=== PATIENT | female | born 1945 | race Two or more races ===

== ENCOUNTER → 2016-02-17 | Outpatient (REF) | payer MEDICAID, OTHER ==
[~2016-02-17] MED LIST: AMLO10TA2 PO; CARV25TA PO; CEFD1CAP8 PO; CHLO125TA PO; HYDR10T PO; LOSA100T36 PO; METF1000 PO; PANT40TA2 PO; SIMV20TA2 PO; SYNT50TA PO; VITA100037 PO
[2016-02-17 13:12] LABS: CALCIUM LEVEL 9.6 MG/DL (8.8-10.2); CREATININE FOR GFR 1.66 MG/DL (0.55-1.02); GLOMERULAR FILTRATION RATE 32.7 (>45)
[2016-02-17 13:31] LABS: POTASSIUM SERUM 5.4 MEQ/L (3.5-5.1)
== END ==
LOC: M LABDRAW1 12:06
PROVIDERS: ATTEND Internal Medicine
DX: N17.9 Acute kidney failure, unspecified (principal)

== ENCOUNTER 2016-03-13 14:27 | Emergency (ER) | payer OTHER ==
[2016-03-13 15:17] LABS: BASO # 0.1 K/mm3 (0.0-0.2); BASO % 0.6 % (0.0-1.0); EOS # 0.1 K/mm3 (0.0-0.50); EOS % 1.2 % (0.0-3.0); LARGE UNSTAINED CELL # 0.1 K/mm3 (0.0-0.4); LARGE UNSTAINED CELL % 0.9 % (0.0-4.0); LYMPH # 1.6 K/mm3 (1.5-4.5); LYMPH % 13.2 % (24.0-44.0); MEAN CORPUSCULAR HEMOGLOBIN 29.3 pg (27.0-33.0); MEAN CORPUSCULAR HGB CONC 32.5 g/dl (32.0-36.5); MEAN CORPUSCULAR VOLUME 90.2 fl (80.0-96.0); MONO # 0.8 K/mm3 (0.0-0.8); MONO % 7.3 % (0.0-5.0); NEUTROPHILS # 8.6 K/mm3 (1.8-7.7); NEUTROPHILS % 76.8 % (36.0-66.0); PLATELET COUNT, AUTOMATED 266 k/mm3 (150-450); WHITE BLOOD COUNT 11.2 K/mm3 (4.0-10.0)
[2016-03-13 15:46] LABS: ALBUMIN 3.6 GM/DL (3.2-5.2); ALBUMIN/GLOBULIN RATIO 0.8 (1.00-1.93); BILIRUBIN,DIRECT 0.1 MG/DL (0.0-0.2); BILIRUBIN,TOTAL 0.5 MG/DL (0.2-1.0); CALCIUM LEVEL 9.2 MG/DL (8.8-10.2); CREATININE FOR GFR 1.84 MG/DL (0.55-1.02); POTASSIUM SERUM 3.9 MEQ/L (3.5-5.1); TOTAL PROTEIN 8.1 GM/DL (6.4-8.2)
[2016-03-13] MEDS ORDERED: cefTRIAXone SOD 1 GM VIAL (J0696) As Ordered ONE (17:12)
--- NOTE | 2016-03-13 18:24 | EDDOCDS ---
Nurse's Notes [facility] Name: Ady Anna Age: 70 yrs Sex: Female : 1945 Arrival Date: 03/13/2016 Time: 14:27 Bed I4 / M4 Private MD: Virginia Hartley Diagnosis: Chronic kidney disease, unspecified;Urinary tract infection, site not specified Presentation: 03/13 14:32 Presenting complaint: Child states: Left flank area pain worsening for 3 days. dwg Presenting complaint: Patient states: Admitted 02/08/16 for pyelonephritis. Adult Sepsis Screening: The patient does not have new or worsening altered mentation. Patient's respiratory rate is less than 22. Systolic blood pressure is greater than 100. Patient has a qSOFA score of 0- Negative Sepsis Screen. Suicide/Homicide risk assessment- the patient denies having any suicidal and/or homicidal ideations and does not present with any other emotional, behavioral or mental health complaints. Status: Patient is not a food service ambassador or dependent. Transition of care: patient was not received from another setting of care. 14:32 Acuity: SALINAS Level 3 dwg 14:32 Method Of Arrival: Walkin/Carried/Asstd dwg Triage Assessment: 14:35 General: Appears in no apparent distress. Pain: Pain currently is 6 out of 10 on a pain dwg scale. Historical: - Allergies: no known allergies; - Home Meds: 1. Tylenol 325 mg Oral tab 2 tabs as needed (Last dose: 03/13/2016 13:30) 2. amlodipine 10 mg Oral tab 1 tab once daily 3. carvedilol 25 mg oral tab 1 tab 2 times per day 4. chlorthalidone 25 mg Oral tab 0.5 tab once daily 5. hydroxyzine HCl 10 mg Oral tab three times a day 6. levothyroxine 50 mcg Oral tab 1 tab once daily 7. losartan-potassium 100 mg nightly 8. metformin 1,000 mg Oral tab 1 tab 2 times per day 9. pantoprazole 40 mg oral TbEC 1 tab 2 times per day 10. simvastatin 20 mg Oral tab 1 tab once daily 11. vitamin d3 2000 units daily - PMHx: Diabetes - NIDDM: controlled; Hypercholesterolemia; Hypertension; Hypothyroidism; Vitamin D deficient; - PSHx: Cataract Surgery- Bilateral; - Social history: Smoking status: Patient states was never smoker of tobacco. The patient speaks a little Hebrew, Daughter here to interpret . - Family history: Not pertinent. - : The pt / caregiver states he / she is not on anticoagulants. Home medication list is obtained from the patient. - Exposure Risk Screening:: None identified. - History obtained from: daughter. Screenin:10 Screening information is obtained from the patient. Fall risk: No risks identified. ttb Assistance ADL's: requires no assistance with activities of daily living. Abuse/DV Screen: The patient / caregiver reports he/she is: not in a situation that causes fear, pain or injury. Nutritional screening: No deficits noted. Advance Directives: Currently, there is no health care proxy. home support is adequate. Assessment: 15:10 General: Appears in no apparent distress, well nourished, well groomed, Behavior is ttb appropriate for age, cooperative, pleasant, quiet. Pain: Location: left flank/back. Neurological: Level of Consciousness is awake, alert. Cardiovascular: Chest pain is denied. Respiratory: No deficits noted. Airway is patent Denies cough, shortness of breath. GI: Abdomen is flat, Abd is soft. : Denies burning with urination, urinary frequency, urgency. Derm: Skin is normal. Injury Description: No known injury. 16:30 General: pt returned from CT at this time. NAD noted.. ttb 17:55 Reassessment: Patient appears in no apparent distress at this time. Adult Sepsis ttb Screening: The patient does not have new or worsening altered mentation. Patient's respiratory rate is less than 22. Systolic blood pressure is less than or equal to 100 (1 point). Patient has a qSOFA score of 1- Negative Sepsis Screen. Neurological: Level of Consciousness is awake, alert. Respiratory: No deficits noted. Airway is patent. Derm: Skin is normal. 18:22 General: Appears in no apparent distress, comfortable, Behavior is appropriate for age, ttb cooperative, pleasant, quiet. Pain: Denies pain. Neurological: Level of Consciousness is awake, alert. Cardiovascular: Chest pain is denied. Respiratory: No deficits noted. Airway is patent Respiratory effort is even, unlabored. GI: Denies nausea, vomiting. Vital Signs: 14:28 BP 108 / 60; Pulse 77; Resp 18 S; Temp 99.1(O); Pulse Ox 97% on R/A; Weight 54.43 kg dd6 (R); Height 4 ft. 11 in. (149.86 cm) (R); 17:56 BP 98 / 64; Pulse 82; Resp 22; Temp 98.7(O); Pulse Ox 97% on R/A; Pain 0/10; bnb 18:18 Resp 18; ms18 14:28 Body Mass Index 24.24 (54.43 kg, 149.86 cm) dd6 Vitals: 14:28 Log In Time: March 13, 2016 at 14:26. dd6 ED Course: 14:28 Patient visited by Tex Roa PCA. dd6 14:28 Virginia Hartley is Private Physician. dd6 14:28 Patient moved to Waiting dd6 14:29 Patient moved to Pre RCE dd6 14:33 Triage Initiated dwg 14:42 Patient moved to Triage 2 ct3 14:46 Urine Culture Sent. ct3 14:46 Urinalysis Sent. ct3 14:47 Brando Gauthier PA-C is PHCP. cc10 14:47 Seda Zhao MD is Attending Physician. cc10 14:52 Patient visited by Brando Gauthier PA-C. cc10 14:52 Patient visited by Brando Gauthier PA-C. cc10 14:58 Patient moved to I4 / M4 jmb 15:09 Lactic Acid (Batista tube on ice) Sent. ttb 15:09 Basic Metabolic Profile Sent. ttb 15:09 CBC with Diff Sent. ttb 15:09 Lipase Sent. ttb 15:09 Liver Profile Sent. ttb 15:09 Inserted peripheral IV: 20gauge IV in right antecubital area and blood collected. ttb Patient tolerated the procedure well. Labs drawn. (by ED staff). Urine collected. Clean catch specimen. 15:10 The patient / caregiver is instructed regarding the plan of care and ED course. ttb Accompanied by Family Member, Patient has correct armband on for positive identification. 15:12 Patient visited by Karlee Weldon RN. ttb 15:12 [facility] Payment Agreement was scanned into [employer] and attached to record. lg 16:05 PHCP role handed off by Brando Gauthier PA-C btw 16:05 Paras Oliva PA is PHCP. btw 16:30 Patient visited by Karlee Weldon, JUVENTINO. ttb 17:34 Patient visited by Jaron Livingston. jml1 17:56 Patient visited by Amy Shelton PCA. bnb 17:56 Patient visited by Karlee Weldon RN. ttb 18:11 Sharon Hernandez is Referral Physician. btw 18:22 Discontinued IV lock intact, bleeding controlled, pressure dressing applied, No ttb redness/swelling at site. 18:22 No procedures done that require assistance. ttb Administered Medications: 15:00 CANCELLED (Other Intervention Used): Acetaminophen Tablet 650 mg PO once cc10 15:09 Drug: NS 0.9% 1000 ml [sodium chloride 0.9 % intravenous solution] Route: IV; Rate: 250 ttb mL/hr; Site: right antecubital; 18:23 Follow up: Response: No Adverse Reaction; IV Status: Completed infusion; IV Intake: ttb 750ml 17:20 Drug: cefTRIAXone 2 grams [ceftriaxone 1 gram solution for injection] Route: IVPB; jjr Infused Over: 30 mins; Site: right antecubital; 17:55 Follow up: Response: No Adverse Reaction; IV Status: Completed infusion ttb Intake: 18:23 IV: 750.00ml; Total: 750.00ml. ttb Order Results: Lab Order: Urinalysis; SPEC'M 03/13/16 14:44 Test: APPEARANCE, URINE; Value: CLOUDY; Range: CLEAR; Abnormal: Above high normal; Status: F Test: COLOR, URINE; Value: YELLOW; Range: YELLOW; Status: F Test: PH,URINE; Value: 7.0; Range: 5.0-9.0; Units: UNITS; Status: F Test: SPECIFIC GRAVITY URINE AUTO; Value: 1.012; Range: 1.002-1.035; Status: F Test: PROTEIN, URINE AUTO; Value: NEGATIVE; Range: NEGATIVE; Units: mg/dL; Status: F Test: GLUCOSE, URINE (UA) AUTO; Value: NEGATIVE; Range: NEGATIVE; Units: mg/dL; Status: F Test: KETONE, URINE AUTO; Value: NEGATIVE; Range: NEGATIVE; Units: mg/dL; Status: F Test: UROBILINOGEN, URINE AUTO; Value: 0.2; Range: 0.0-2.0; Units: mg/dL; Status: F Test: BILIRUBIN, URINE AUTO; Value: NEGATIVE; Range: NEGATIVE; Status: F Test: NITRITE, URINE AUTO; Value: NEGATIVE; Range: NEGATIVE; Status: F Test: LEUKOCYTE ESTERASE, URINE AUTO; Value: 3+; Range: NEGATIVE; Abnormal: Above high normal; Status: F Test: BLOOD, URINE BLOOD; Value: NEGATIVE; Range: NEGATIVE; Status: F Test: WBC, URINE AUTO; Value: 161; Range: 0-3; Abnormal: Above high normal; Units: /HPF; Status: F Test: RBC, URINE AUTO; Value: 13; Range: 0-3; Abnormal: Above high normal; Units: /HPF; Status: F Test: BACTERIA, URINE AUTO; Value: 3+; Range: NEGATIVE; Abnormal: Above high normal; Status: F Test: SQUAMOUS EPITHELIAL CELL UR AU; Value: 14; Range: 0-6; Units: /HPF; Status: F Test: HYALINE CAST, URINE AUTO; Value: 0; Range: 0-1; Units: /LPF; Status: F Lab Order: Basic Metabolic Profile; SPEC'M 03/13/16 15:07 Test: GLUCOSE, FASTING; Value: 174; Range: 80-110; Abnormal: Above high normal; Units: MG/DL; Status: F Test: BLOOD UREA NITROGEN; Value: 28; Range: 7-18; Abnormal: Above high normal; Units: MG/DL; Status: F Test: CREATININE FOR GFR; Value: 1.84; Range: 0.55-1.02; Abnormal: Above high normal; Units: MG/DL; Status: F Test: GLOMERULAR FILTRATION RATE; Value: 29.0; Range: >45; Abnormal: Below low normal; Status: F Test: SODIUM LEVEL; Value: 138; Range: 136-145; Units: MEQ/L; Status: F Test: POTASSIUM SERUM; Value: 3.9; Range: 3.5-5.1; Units: MEQ/L; Status: F Test: CHLORIDE LEVEL; Value: 101; Range: 98-107; Units: MEQ/L; Status: F Test: CARBON DIOXIDE LEVEL; Value: 26; Range: 21-32; Units: MEQ/L; Status: F Test: ANION GAP; Value: 11; Range: 8-16; Units: MEQ/L; Status: F Test: CALCIUM LEVEL; Value: 9.2; Range: 8.8-10.2; Units: MG/DL; Status: F Test Note: ; Units are mL/min/1.73 m2 Chronic Kidney Disease Staging per NKF: Stage I & II GFR >=60 Normal to Mildly Decreased Stage III GFR 30-59 Moderately Decreased Stage IV GFR 15-29 Severely Decreased Stage V GFR <15 Very Little GFR Left ESRD GFR <15 on MILK RECEIVER Lab Order: CBC with Diff; SPEC'M 03/13/16 15:07 Test: WHITE BLOOD COUNT; Value: 11.2; Range: 4.0-10.0; Abnormal: Above high normal; Units: K/mm3; Status: F Test: RED BLOOD COUNT; Value: 3.62; Range: 4.00-5.40; Abnormal: Below low normal; Units: M/mm3; Status: F Test: HEMOGLOBIN; Value: 10.6; Range: 12.0-16.0; Abnormal: Below low normal; Units: g/dl; Status: F Test: HEMATOCRIT; Value: 32.6; Range: 36.0-47.0; Abnormal: Below low normal; Units: %; Status: F Test: MEAN CORPUSCULAR VOLUME; Value: 90.2; Range: 80.0-96.0; Units: fl; Status: F Test: MEAN CORPUSCULAR HEMOGLOBIN; Value: 29.3; Range: 27.0-33.0; Units: pg; Status: F Test: MEAN CORPUSCULAR HGB CONC; Value: 32.5; Range: 32.0-36.5; Units: g/dl; Status: F Test: RED CELL DISTRIBUTION WIDTH; Value: 14.0; Range: 11.5-14.5; Units: %; Status: F Test: PLATELET COUNT, AUTOMATED; Value: 266; Range: 150-450; Units: k/mm3; Status: F Test: NEUTROPHILS %; Value: 76.8; Range: 36.0-66.0; Abnormal: Above high normal; Units: %; Status: F Test: LYMPH %; Value: 13.2; Range: 24.0-44.0; Abnormal: Below low normal; Units: %; Status: F Test: MONO %; Value: 7.3; Range: 0.0-5.0; Abnormal: Above high normal; Units: %; Status: F Test: EOS %; Value: 1.2; Range: 0.0-3.0; Units: %; Status: F Test: BASO %; Value: 0.6; Range: 0.0-1.0; Units: %; Status: F Test: LARGE UNSTAINED CELL %; Value: 0.9; Range: 0.0-4.0; Units: %; Status: F Test: NEUTROPHILS #; Value: 8.6; Range: 1.8-7.7; Abnormal: Above high normal; Units: K/mm3; Status: F Test: LYMPH #; Value: 1.6; Range: 1.5-4.5; Units: K/mm3; Status: F Test: MONO #; Value: 0.8; Range: 0.0-0.8; Units: K/mm3; Status: F Test: EOS #; Value: 0.1; Range: 0.0-0.50; Units: K/mm3; Status: F Test: BASO #; Value: 0.1; Range: 0.0-0.2; Units: K/mm3; Status: F Test: LARGE UNSTAINED CELL #; Value: 0.1; Range: 0.0-0.4; Units: K/mm3; Status: F Lab Order: Lipase; [facility]' 03/13/16 15:07 Test: LIPASE; Value: 186; Range: 73-393; Units: U/L; Status: F Lab Order: Liver Profile; [facility]' 03/13/16 15:07 Test: AST/SGOT; Value: 17; Range: 15-37; Units: U/L; Status: F Test: ALT/SGPT; Value: 22; Range: 12-78; Units: U/L; Status: F Test: ALKALINE PHOSPHATASE; Value: 104; Range: 45-117; Units: U/L; Status: F Test: BILIRUBIN,TOTAL; Value: 0.5; Range: 0.2-1.0; Units: MG/DL; Status: F Test: BILIRUBIN,DIRECT; Value: 0.1; Range: 0.0-0.2; Units: MG/DL; Status: F Test: TOTAL PROTEIN; Value: 8.1; Range: 6.4-8.2; Units: GM/DL; Status: F Test: ALBUMIN; Value: 3.6; Range: 3.2-5.2; Units: GM/DL; Status: F Test: ALBUMIN/GLOBULIN RATIO; Value: 0.80; Range: 1.00-1.93; Abnormal: Below low normal; Status: F Lab Order: Lactic Acid (Batista tube on ice); SPEC'M 03/13/16 15:07 Test: LACTIC ACID LEVEL, LACTATE; Value: 1.0; Range: 0.4-2.0; Units: MMOL/L; Status: F Outcome: 18:11 Discharge ordered by Provider. btw 18:22 Discharge Assessment: Patient awake, alert and oriented x 3. No cognitive and/or ttb functional deficits noted. Patient verbalized understanding of disposition instructions. Patient awake and alert. patient administered narcotics - no. The following High Risk Discharge criteria are identified: None. Discharged to home ambulatory, with family. Condition: good Condition: stable Condition: improved. Discharge instructions given to patient, family, Instructed on discharge instructions, follow up and referral plans. medication usage, Demonstrated understanding of instructions, medications, Pt was receptive of discharge instructions/ teaching. Prescriptions given X 1. CT Study completed. Property sent home with patient. 18:23 Patient left the ED. ttb Signatures: Ernie Guerrero RN RN dwg Becca Benson, Reg Reg lg Dawn Carlson RN Tex Zuñiga, TEACHER HOME THERAPY TEACHER HOME THERAPY dd6 Paras Oliva PA PA btw Humaira Hinojosa, TEACHER HOME THERAPY TEACHER HOME THERAPY ct3 Jaron Livingston jml1 Karlee Weldon RN RN ttb Christian Shelton RN RN jensenb Brando Gauthier, PA-C PA-C cc10 Tammy Olson RN RN [id number] Amy Shelton, TEACHER HOME THERAPY TEACHER HOME THERAPY bnb Corrections: (The following items were deleted from the chart) 14:37 14:35 Social history Smoking status: Patient states was never smoker of tobacco. No dwg barriers to communication noted, The patient speaks fluent Hebrew, dwg MTDD
--- NOTE | 2016-03-13 18:24 | EDDOCDS ---
Physician Documentation [facility] Name: Ady Anna Age: 70 yrs Sex: Female : 1945 Arrival Date: 03/13/2016 Time: 14:27 Bed I4 / M4 Private MD: Virginia Hartley Disposition: 03/13/16 18:11 Discharged to Home/Self Care. Impression: Chronic kidney disease, unspecified, Urinary tract infection, site not specified. - Condition is Stable. - Discharge Instructions: Urinary Tract Infection, [id number], Chronic Kidney Disease. - Prescriptions for Keflex 500 mg Oral Capsule - take 1 capsule by ORAL route every 8 hours for 10 days; 30 capsule. - Medication Reconciliation, Local Pharmacy Hours form. - Follow up: Sharon Hernandez; When: Call to arrange an appointment; Reason: Further diagnostic work-up, Recheck today's complaints, Continuance of care. - Problem is an ongoing problem. - Symptoms are unchanged. Historical: - Allergies: no known allergies; - Home Meds: 1. Tylenol 325 mg Oral tab 2 tabs as needed (Last dose: 03/13/2016 13:30) 2. amlodipine 10 mg Oral tab 1 tab once daily 3. carvedilol 25 mg oral tab 1 tab 2 times per day 4. chlorthalidone 25 mg Oral tab 0.5 tab once daily 5. hydroxyzine HCl 10 mg Oral tab three times a day 6. levothyroxine 50 mcg Oral tab 1 tab once daily 7. losartan-potassium 100 mg nightly 8. metformin 1,000 mg Oral tab 1 tab 2 times per day 9. pantoprazole 40 mg oral TbEC 1 tab 2 times per day 10. simvastatin 20 mg Oral tab 1 tab once daily 11. vitamin d3 2000 units daily - PMHx: Diabetes - NIDDM: controlled; Hypercholesterolemia; Hypertension; Hypothyroidism; Vitamin D deficient; - PSHx: Cataract Surgery- Bilateral; - Social history: Smoking status: Patient states was never smoker of tobacco. The patient speaks a little Bulgarian, Daughter here to interpret . - Family history: Not pertinent. - : The pt / caregiver states he / she is not on anticoagulants. Home medication list is obtained from the patient. - Exposure Risk Screening:: None identified. - History obtained from: daughter. Vital Signs: 03/13 14:28 BP 108 / 60; Pulse 77; Resp 18 S; Temp 99.1(O); Pulse Ox 97% on R/A; Weight 54.43 kg / dd6 120 lbs (R); Height 4 ft. 11 in. (149.86 cm) (R); 17:56 BP 98 / 64; Pulse 82; Resp 22; Temp 98.7(O); Pulse Ox 97% on R/A; Pain 0/10; bnb 18:18 Resp 18; ms18 14:28 Body Mass Index 24.24 (54.43 kg, 149.86 cm) dd6 MDM: 14:38 Urinalysis Ordered. EDMS 14:38 Urine Culture Ordered. EDMS 14:56 IV Saline Lock ordered. cc10 14:56 Undress patient appropriately for examination ordered. cc10 14:56 NS 0.9% 1000 ml IV at 250 mL/hr continuous ordered. cc10 14:57 Basic Metabolic Profile Ordered. EDMS 14:57 CBC with Diff Ordered. EDMS 14:57 Lipase Ordered. EDMS 14:57 Liver Profile Ordered. EDMS 14:57 NOTHING BY MOUTH+DIET ordered. EDMS 14:58 Lactic Acid (Batista tube on ice) Ordered. EDMS 15:12 Financial registration complete. lg 15:12 [facility] Payment Agreement was scanned into [employer] and attached to record. lg 15:49 Urinalysis Reviewed. cc10 15:49 Basic Metabolic Profile Reviewed. cc10 15:49 CBC with Diff Reviewed. cc10 15:49 Liver Profile Reviewed. cc10 15:49 Lipase Reviewed. cc10 15:49 Lactic Acid (Batista tube on ice) Reviewed. cc10 15:59 CT ABD & PELVIS: No Contrast Ordered. EDMS 17:03 cefTRIAXone 2 grams IVPB once over 30 mins; dilute in 50mL of NS or D5W ordered. btw Administered Medications: 15:00 CANCELLED (Other Intervention Used): Acetaminophen Tablet 650 mg PO once cc10 15:09 Drug: NS 0.9% 1000 ml [sodium chloride 0.9 % intravenous solution] Route: IV; Rate: 250 ttb mL/hr; Site: right antecubital; 18:23 Follow up: Response: No Adverse Reaction; IV Status: Completed infusion; IV Intake: ttb 750ml 17:20 Drug: cefTRIAXone 2 grams [ceftriaxone 1 gram solution for injection] Route: IVPB; jjr Infused Over: 30 mins; Site: right antecubital; 17:55 Follow up: Response: No Adverse Reaction; IV Status: Completed infusion ttb Signatures: Dispatcher [employer] Ernie Benton, RN RN dwg Becca Benson, Reg Reg lg Paras Oliva PA PA btw Conner, Teresa, RN RN ttb Brando Gauthier PA-C PA-C cc10 Dawn Carlson RN jjlima The chart was reviewed and I authenticate all verbal orders and agree with the evaluation and treatment provided.Corrections: (The following items were deleted from the chart) 14:37 14:35 Social history Smoking status: Patient states was never smoker of tobacco. No [facility] barriers to communication noted, The patient speaks fluent Bulgarian, [facility] 15:00 14:59 Acetaminophen Tablet 650 mg PO once ordered. cc10 cc10 Attachments: 15:12 [facility] Payment Agreement lg MTDD
--- NOTE | 2016-03-15 11:05 | REP ---
CT abdomen pelvis without IV or bowel contrast: Comparisons 02/08/2016. There is a nonobstructive 3 mm right renal calculus in an upper pole blanca, unchanged. There are no left renal calculi. There is no hydronephrosis on the right on the left. No ureteral calculi are identified. There are phleboliths in the pelvis, unchanged. There is fullness of the left renal cortex, particularly the upper pole compared to the right. There is perinephric stranding of the left kidney compared to the right. These findings are similar to the prior study and a nonspecific, however, pyelonephritis or neoplasm or some diagnostic considerations. Contrast enhanced CT or MRI followup might be considered. The visualized lung cruz are unremarkable. The unenhanced hepatic parenchyma, gallbladder, pancreas and spleen are unremarkable. The adrenals, abdominal aorta, and bowel are unremarkable except for occasional colonic diverticuli in the ascending colon, transverse colon, descending colon and sigmoid colon without evidence of diverticulitis. Pelvis: The the appendix is unremarkable. There is no ascites or adenopathy. The uterus and adnexa are unremarkable. The bladder is collapsed and cannot be assessed. Impression: No hydronephrosis. There are findings in the left kidney as described which could represent neoplasm or pyelonephritis and are similar appearance to the prior study. Contrast enhanced CT or MRI followup might be considered. Diverticulosis without diverticulitis. Signed by Ernie Castro MD 03/13/2016 04:53 P
--- NOTE | 2016-03-15 19:24 | EDDOCDS ---
Physician Documentation [facility] Name: Ady Anna Age: 70 yrs Sex: Female : 1945 Arrival Date: 03/13/2016 Time: 14:27 Bed I4 / M4 Private MD: Virginia Hartley Disposition: 03/13/16 18:11 Discharged to Home/Self Care. Impression: Chronic kidney disease, unspecified, Urinary tract infection, site not specified. - Condition is Stable. - Discharge Instructions: Urinary Tract Infection, [id number], Chronic Kidney Disease. - Prescriptions for Keflex 500 mg Oral Capsule - take 1 capsule by ORAL route every 8 hours for 10 days; 30 capsule. - Medication Reconciliation, Local Pharmacy Hours form. - Follow up: Sharon Diaz; When: Call to arrange an appointment; Reason: Further diagnostic work-up, Recheck today's complaints, Continuance of care. - Problem is an ongoing problem. - Symptoms are unchanged. Historical: - Allergies: no known allergies; - Home Meds: 1. Tylenol 325 mg Oral tab 2 tabs as needed (Last dose: 03/13/2016 13:30) 2. amlodipine 10 mg Oral tab 1 tab once daily 3. carvedilol 25 mg oral tab 1 tab 2 times per day 4. chlorthalidone 25 mg Oral tab 0.5 tab once daily 5. hydroxyzine HCl 10 mg Oral tab three times a day 6. levothyroxine 50 mcg Oral tab 1 tab once daily 7. losartan-potassium 100 mg nightly 8. metformin 1,000 mg Oral tab 1 tab 2 times per day 9. pantoprazole 40 mg oral TbEC 1 tab 2 times per day 10. simvastatin 20 mg Oral tab 1 tab once daily 11. vitamin d3 2000 units daily - PMHx: Diabetes - NIDDM: controlled; Hypercholesterolemia; Hypertension; Hypothyroidism; Vitamin D deficient; - PSHx: Cataract Surgery- Bilateral; - Social history: Smoking status: Patient states was never smoker of tobacco. The patient speaks a little Chilean, Daughter here to interpret . - Family history: Not pertinent. - : The pt / caregiver states he / she is not on anticoagulants. Home medication list is obtained from the patient. - Exposure Risk Screening:: None identified. - History obtained from: daughter. Vital Signs: 03/13 14:28 BP 108 / 60; Pulse 77; Resp 18 S; Temp 99.1(O); Pulse Ox 97% on R/A; Weight 54.43 kg / dd6 120 lbs (R); Height 4 ft. 11 in. (149.86 cm) (R); 17:56 BP 98 / 64; Pulse 82; Resp 22; Temp 98.7(O); Pulse Ox 97% on R/A; Pain 0/10; bnb 18:18 Resp 18; ms18 14:28 Body Mass Index 24.24 (54.43 kg, 149.86 cm) dd6 MDM: 14:38 Urinalysis Ordered. EDMS 14:38 Urine Culture Ordered. EDMS 14:56 IV Saline Lock ordered. cc10 14:56 Undress patient appropriately for examination ordered. cc10 14:56 NS 0.9% 1000 ml IV at 250 mL/hr continuous ordered. cc10 14:57 Basic Metabolic Profile Ordered. EDMS 14:57 CBC with Diff Ordered. EDMS 14:57 Lipase Ordered. EDMS 14:57 Liver Profile Ordered. EDMS 14:57 NOTHING BY MOUTH+DIET ordered. EDMS 14:58 Lactic Acid (Batista tube on ice) Ordered. EDMS 15:12 Financial registration complete. lg 15:12 [facility] Payment Agreement was scanned into [email or web address] and attached to record. lg 15:49 Urinalysis Reviewed. cc10 15:49 Basic Metabolic Profile Reviewed. cc10 15:49 CBC with Diff Reviewed. cc10 15:49 Liver Profile Reviewed. cc10 15:49 Lipase Reviewed. cc10 15:49 Lactic Acid (Batista tube on ice) Reviewed. cc10 15:59 CT ABD & PELVIS: No Contrast Ordered. EDMS 17:03 cefTRIAXone 2 grams IVPB once over 30 mins; dilute in 50mL of NS or D5W ordered. btw 03/14 18:35 T-Sheet-- Draft Copy was scanned into [email or web address] and attached to record. kf3 03/15 13:21 ED course: dr diaz and luis armando faxed formal report of ct abd/p for fu mlg. ml 15:29 Lab / Xray Callback was scanned into [email or web address] and attached to record. srm Administered Medications: 03/13 15:00 CANCELLED (Other Intervention Used): Acetaminophen Tablet 650 mg PO once cc10 15:09 Drug: NS 0.9% 1000 ml [sodium chloride 0.9 % intravenous solution] Route: IV; Rate: 250 ttb mL/hr; Site: right antecubital; 18:23 Follow up: Response: No Adverse Reaction; IV Status: Completed infusion; IV Intake: ttb 750ml 17:20 Drug: cefTRIAXone 2 grams [ceftriaxone 1 gram solution for injection] Route: IVPB; jjr Infused Over: 30 mins; Site: right antecubital; 17:55 Follow up: Response: No Adverse Reaction; IV Status: Completed infusion ttb Signatures: Dispatcher [employer] EDKS Jimmy Hurley MD MD ml Greene, Daniel RN RN dwg Edna Ewing RN RN [facility] Becca Benson, Reg Reg lg Mitch Field, Reg Reg kf3 Paras Oliva PA PA btw Conner, Teresa, RN RN ttb Brando Gauthier PA-C PA-C cc10 Raymond, Jessica RN jjr The chart was reviewed and I authenticate all verbal orders and agree with the evaluation and treatment provided.Corrections: (The following items were deleted from the chart) 14:37 14:35 Social history Smoking status: Patient states was never smoker of tobacco. No [facility] barriers to communication noted, The patient speaks fluent [place]an, [facility] 15:00 14:59 Acetaminophen Tablet 650 mg PO once ordered. cc10 cc10 Attachments: 15:12 [facility] Payment Agreement lg 03/14 18:35 T-Sheet-- Draft Copy kf3 Chart Complete MTDD
--- NOTE | 2016-03-15 19:24 | EDDOCDS ---
Physician Documentation [facility] Name: Ady Anna Age: 70 yrs Sex: Female : 1945 Arrival Date: 03/13/2016 Time: 14:27 Bed I4 / M4 Private MD: Virginia Hartley Disposition: 03/13/16 18:11 Discharged to Home/Self Care. Impression: Chronic kidney disease, unspecified, Urinary tract infection, site not specified. - Condition is Stable. - Discharge Instructions: Urinary Tract Infection, [id number], Chronic Kidney Disease. - Prescriptions for Keflex 500 mg Oral Capsule - take 1 capsule by ORAL route every 8 hours for 10 days; 30 capsule. - Medication Reconciliation, Local Pharmacy Hours form. - Follow up: Sharon Diaz; When: Call to arrange an appointment; Reason: Further diagnostic work-up, Recheck today's complaints, Continuance of care. - Problem is an ongoing problem. - Symptoms are unchanged. Historical: - Allergies: no known allergies; - Home Meds: 1. Tylenol 325 mg Oral tab 2 tabs as needed (Last dose: 03/13/2016 13:30) 2. amlodipine 10 mg Oral tab 1 tab once daily 3. carvedilol 25 mg oral tab 1 tab 2 times per day 4. chlorthalidone 25 mg Oral tab 0.5 tab once daily 5. hydroxyzine HCl 10 mg Oral tab three times a day 6. levothyroxine 50 mcg Oral tab 1 tab once daily 7. losartan-potassium 100 mg nightly 8. metformin 1,000 mg Oral tab 1 tab 2 times per day 9. pantoprazole 40 mg oral TbEC 1 tab 2 times per day 10. simvastatin 20 mg Oral tab 1 tab once daily 11. vitamin d3 2000 units daily - PMHx: Diabetes - NIDDM: controlled; Hypercholesterolemia; Hypertension; Hypothyroidism; Vitamin D deficient; - PSHx: Cataract Surgery- Bilateral; - Social history: Smoking status: Patient states was never smoker of tobacco. The patient speaks a little Scottish, Daughter here to interpret . - Family history: Not pertinent. - : The pt / caregiver states he / she is not on anticoagulants. Home medication list is obtained from the patient. - Exposure Risk Screening:: None identified. - History obtained from: daughter. Vital Signs: 03/13 14:28 BP 108 / 60; Pulse 77; Resp 18 S; Temp 99.1(O); Pulse Ox 97% on R/A; Weight 54.43 kg / dd6 120 lbs (R); Height 4 ft. 11 in. (149.86 cm) (R); 17:56 BP 98 / 64; Pulse 82; Resp 22; Temp 98.7(O); Pulse Ox 97% on R/A; Pain 0/10; bnb 18:18 Resp 18; ms18 14:28 Body Mass Index 24.24 (54.43 kg, 149.86 cm) dd6 MDM: 14:38 Urinalysis Ordered. EDMS 14:38 Urine Culture Ordered. EDMS 14:56 IV Saline Lock ordered. cc10 14:56 Undress patient appropriately for examination ordered. cc10 14:56 NS 0.9% 1000 ml IV at 250 mL/hr continuous ordered. cc10 14:57 Basic Metabolic Profile Ordered. EDMS 14:57 CBC with Diff Ordered. EDMS 14:57 Lipase Ordered. EDMS 14:57 Liver Profile Ordered. EDMS 14:57 NOTHING BY MOUTH+DIET ordered. EDMS 14:58 Lactic Acid (Batista tube on ice) Ordered. EDMS 15:12 Financial registration complete. lg 15:12 [facility] [place] Agreement was scanned into [employer] and attached to record. lg 15:49 Urinalysis Reviewed. cc10 15:49 Basic Metabolic Profile Reviewed. cc10 15:49 CBC with Diff Reviewed. cc10 15:49 Liver Profile Reviewed. cc10 15:49 Lipase Reviewed. cc10 15:49 Lactic Acid (Batista tube on ice) Reviewed. cc10 15:59 CT ABD & PELVIS: No Contrast Ordered. EDMS 17:03 cefTRIAXone 2 grams IVPB once over 30 mins; dilute in 50mL of NS or D5W ordered. btw 03/14 18:35 T-Sheet-- Draft Copy was scanned into [employer] and attached to record. kf3 03/15 13:21 ED course: dr diaz and luis armando faxed formal report of ct abd/p for fu mlg. ml 15:29 Lab / Xray Callback was scanned into [employer] and attached to record. srm Administered Medications: 03/13 15:00 CANCELLED (Other Intervention Used): Acetaminophen Tablet 650 mg PO once cc10 15:09 Drug: NS 0.9% 1000 ml [sodium chloride 0.9 % intravenous solution] Route: IV; Rate: 250 ttb mL/hr; Site: right antecubital; 18:23 Follow up: Response: No Adverse Reaction; IV Status: Completed infusion; IV Intake: ttb 750ml 17:20 Drug: cefTRIAXone 2 grams [ceftriaxone 1 gram solution for injection] Route: IVPB; jjr Infused Over: 30 mins; Site: right antecubital; 17:55 Follow up: Response: No Adverse Reaction; IV Status: Completed infusion ttb Signatures: Dispatcher [employer] EDNY Jimmy Hurley MD MD ml Greene, Daniel RN RN dwg Edna Ewing RN RN [facility] Becca Benson, Reg Reg lg Mitch Field, Reg Reg kf3 Paras Oliva PA PA btw Conner, Teresa, RN RN ttb Brando Gauthier PA-C PA-C cc10 Raymond, Jessica RN jjr The chart was reviewed and I authenticate all verbal orders and agree with the evaluation and treatment provided.Corrections: (The following items were deleted from the chart) 14:37 14:35 Social history Smoking status: Patient states was never smoker of tobacco. No [facility] barriers to communication noted, The patient speaks fluent [place], [facility] 15:00 14:59 Acetaminophen Tablet 650 mg PO once ordered. cc10 cc10 Attachments: 15:12 [facility] Payment Agreement lg 03/14 18:35 T-Sheet-- Draft Copy kf3 Chart Complete MTDD
--- NOTE | 2016-03-15 19:24 | EDDOCDS ---
Nurse's Notes [facility] Name: Ady Anna Age: 70 yrs Sex: Female : 1945 Arrival Date: 03/13/2016 Time: 14:27 Bed I4 / M4 Private MD: Virginia Hartley Diagnosis: Chronic kidney disease, unspecified;Urinary tract infection, site not specified Presentation: 03/13 14:32 Presenting complaint: Child states: Left flank area pain worsening for 3 days. dwg Presenting complaint: Patient states: Admitted 02/08/16 for pyelonephritis. Adult Sepsis Screening: The patient does not have new or worsening altered mentation. Patient's respiratory rate is less than 22. Systolic blood pressure is greater than 100. Patient has a qSOFA score of 0- Negative Sepsis Screen. Suicide/Homicide risk assessment- the patient denies having any suicidal and/or homicidal ideations and does not present with any other emotional, behavioral or mental health complaints. 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 Transition of care: patient was not received from another setting of care. 14:32 Acuity: SALINAS Level 3 dwg 14:32 Method Of Arrival: Walkin/Carried/Asstd dwg Triage Assessment: 14:35 General: Appears in no apparent distress. Pain: Pain currently is 6 out of 10 on a pain dwg scale. Historical: - Allergies: no known allergies; - Home Meds: 1. Tylenol 325 mg Oral tab 2 tabs as needed (Last dose: 03/13/2016 13:30) 2. amlodipine 10 mg Oral tab 1 tab once daily 3. carvedilol 25 mg oral tab 1 tab 2 times per day 4. chlorthalidone 25 mg Oral tab 0.5 tab once daily 5. hydroxyzine HCl 10 mg Oral tab three times a day 6. levothyroxine 50 mcg Oral tab 1 tab once daily 7. losartan-potassium 100 mg nightly 8. metformin 1,000 mg Oral tab 1 tab 2 times per day 9. pantoprazole 40 mg oral TbEC 1 tab 2 times per day 10. simvastatin 20 mg Oral tab 1 tab once daily 11. vitamin d3 2000 units daily - PMHx: Diabetes - NIDDM: controlled; Hypercholesterolemia; Hypertension; Hypothyroidism; Vitamin D deficient; - PSHx: Cataract Surgery- Bilateral; - Social history: Smoking status: Patient states was never smoker of tobacco. The patient speaks a little Macedonian, Daughter here to interpret . - Family history: Not pertinent. - : The pt / caregiver states he / she is not on anticoagulants. Home medication list is obtained from the patient. - Exposure Risk Screening:: None identified. - History obtained from: daughter. Screenin:10 Screening information is obtained from the patient. Fall risk: No risks identified. ttb Assistance ADL's: requires no assistance with activities of daily living. Abuse/DV Screen: The patient / caregiver reports he/she is: not in a situation that causes fear, pain or injury. Nutritional screening: No deficits noted. Advance Directives: Currently, there is no health care proxy. home support is adequate. Assessment: 15:10 General: Appears in no apparent distress, well nourished, well groomed, Behavior is ttb appropriate for age, cooperative, pleasant, quiet. Pain: Location: left flank/back. Neurological: Level of Consciousness is awake, alert. Cardiovascular: Chest pain is denied. Respiratory: No deficits noted. Airway is patent Denies cough, shortness of breath. GI: Abdomen is flat, Abd is soft. : Denies burning with urination, urinary frequency, urgency. Derm: Skin is normal. Injury Description: No known injury. 16:30 General: pt returned from CT at this time. NAD noted.. ttb 17:55 Reassessment: Patient appears in no apparent distress at this time. Adult Sepsis ttb Screening: The patient does not have new or worsening altered mentation. Patient's respiratory rate is less than 22. Systolic blood pressure is less than or equal to 100 (1 point). Patient has a qSOFA score of 1- Negative Sepsis Screen. Neurological: Level of Consciousness is awake, alert. Respiratory: No deficits noted. Airway is patent. Derm: Skin is normal. 18:22 General: Appears in no apparent distress, comfortable, Behavior is appropriate for age, ttb cooperative, pleasant, quiet. Pain: Denies pain. Neurological: Level of Consciousness is awake, alert. Cardiovascular: Chest pain is denied. Respiratory: No deficits noted. Airway is patent Respiratory effort is even, unlabored. GI: Denies nausea, vomiting. Vital Signs: 14:28 BP 108 / 60; Pulse 77; Resp 18 S; Temp 99.1(O); Pulse Ox 97% on R/A; Weight 54.43 kg dd6 (R); Height 4 ft. 11 in. (149.86 cm) (R); 17:56 BP 98 / 64; Pulse 82; Resp 22; Temp 98.7(O); Pulse Ox 97% on R/A; Pain 0/10; bnb 18:18 Resp 18; ms18 14:28 Body Mass Index 24.24 (54.43 kg, 149.86 cm) dd6 Vitals: 14:28 Log In Time: March 13, 2016 at 14:26. dd6 ED Course: 14:28 Patient visited by Tex Roa PCA. dd6 14:28 Virginia Hartley is Private Physician. dd6 14:28 Patient moved to Waiting dd6 14:29 Patient moved to Pre RCE dd6 14:33 Triage Initiated dwg 14:42 Patient moved to Triage 2 ct3 14:46 Urine Culture Sent. ct3 14:46 Urinalysis Sent. ct3 14:47 Brando Gauthier PA-C is PHCP. cc10 14:47 Seda Zhao MD is Attending Physician. cc10 14:52 Patient visited by Brando Gauthier PA-C. cc10 14:52 Patient visited by Brando Gauthier PA-C. cc10 14:58 Patient moved to I4 / M4 jmb 15:09 Lactic Acid (Batista tube on ice) Sent. ttb 15:09 Basic Metabolic Profile Sent. ttb 15:09 CBC with Diff Sent. ttb 15:09 Lipase Sent. ttb 15:09 Liver Profile Sent. ttb 15:09 Inserted peripheral IV: 20gauge IV in right antecubital area and blood collected. ttb Patient tolerated the procedure well. Labs drawn. (by ED staff). Urine collected. Clean catch specimen. 15:10 The patient / caregiver is instructed regarding the plan of care and ED course. ttb Accompanied by Family Member, Patient has correct armband on for positive identification. 15:12 Patient visited by Karlee Weldon RN. ttb 15:12 [facility] Payment Agreement was scanned into [employer] and attached to record. lg 16:05 PHCP role handed off by Brando Gauthier PA-C btw 16:05 Paras Oliva PA is PHCP. btw 16:30 Patient visited by Karlee Weldon, JUVENTINO. ttb 17:34 Patient visited by Jaron Livingston. jml1 17:56 Patient visited by Amy Shelton PCA. bnb 17:56 Patient visited by Karlee Weldon RN. ttb 18:11 Sharon Hernandez is Referral Physician. btw 18:22 Discontinued IV lock intact, bleeding controlled, pressure dressing applied, No ttb redness/swelling at site. 18:22 No procedures done that require assistance. ttb 03/14 18:35 T-Sheet-- Draft Copy was scanned into [employer] and attached to record. kf3 03/15 11:19 CT ABD & PELVIS: No Contrast Returned. EDMS 15:29 Lab / Xray Callback was scanned into [employer] and attached to record. srm Administered Medications: 03/13 15:00 CANCELLED (Other Intervention Used): Acetaminophen Tablet 650 mg PO once cc10 15:09 Drug: NS 0.9% 1000 ml [sodium chloride 0.9 % intravenous solution] Route: IV; Rate: 250 ttb mL/hr; Site: right antecubital; 18:23 Follow up: Response: No Adverse Reaction; IV Status: Completed infusion; IV Intake: ttb 750ml 17:20 Drug: cefTRIAXone 2 grams [ceftriaxone 1 gram solution for injection] Route: IVPB; jjr Infused Over: 30 mins; Site: right antecubital; 17:55 Follow up: Response: No Adverse Reaction; IV Status: Completed infusion ttb Intake: 18:23 IV: 750.00ml; Total: 750.00ml. ttb Order Results: Lab Order: Urinalysis; SPEC'M 03/13/16 14:44 Test: APPEARANCE, URINE; Value: CLOUDY; Range: CLEAR; Abnormal: Above high normal; Status: F Test: COLOR, URINE; Value: YELLOW; Range: YELLOW; Status: F Test: PH,URINE; Value: 7.0; Range: 5.0-9.0; Units: UNITS; Status: F Test: SPECIFIC GRAVITY URINE AUTO; Value: 1.012; Range: 1.002-1.035; Status: F Test: PROTEIN, URINE AUTO; Value: NEGATIVE; Range: NEGATIVE; Units: mg/dL; Status: F Test: GLUCOSE, URINE (UA) AUTO; Value: NEGATIVE; Range: NEGATIVE; Units: mg/dL; Status: F Test: KETONE, URINE AUTO; Value: NEGATIVE; Range: NEGATIVE; Units: mg/dL; Status: F Test: UROBILINOGEN, URINE AUTO; Value: 0.2; Range: 0.0-2.0; Units: mg/dL; Status: F Test: BILIRUBIN, URINE AUTO; Value: NEGATIVE; Range: NEGATIVE; Status: F Test: NITRITE, URINE AUTO; Value: NEGATIVE; Range: NEGATIVE; Status: F Test: LEUKOCYTE ESTERASE, URINE AUTO; Value: 3+; Range: NEGATIVE; Abnormal: Above high normal; Status: F Test: BLOOD, URINE BLOOD; Value: NEGATIVE; Range: NEGATIVE; Status: F Test: WBC, URINE AUTO; Value: 161; Range: 0-3; Abnormal: Above high normal; Units: /HPF; Status: F Test: RBC, URINE AUTO; Value: 13; Range: 0-3; Abnormal: Above high normal; Units: /HPF; Status: F Test: BACTERIA, URINE AUTO; Value: 3+; Range: NEGATIVE; Abnormal: Above high normal; Status: F Test: SQUAMOUS EPITHELIAL CELL UR AU; Value: 14; Range: 0-6; Units: /HPF; Status: F Test: HYALINE CAST, URINE AUTO; Value: 0; Range: 0-1; Units: /LPF; Status: F Lab Order: Urine Culture; SPEC'M 03/13/16 14:44 Test: URINE CULTURE; Value: <EXTERNAL COMMENT eCWMed> FULL REPORT IN LAB NOTES (eCW and [employer]).; Status: F Test: URINE CULTURE; Value: ORGANISM 1: KLEBSIELLA PNEUMONIAE; Status: F Test: URINE CULTURE; Value: KLEBSIELLA PNEUMONIAE; Status: F Test: URINE CULTURE; Value: COLONY COUNT CFU/ml >100,000; Status: F Test: URINE CULTURE; Value: GRAM NEG SENSI - VITEK 80; Status: F Test: URINE CULTURE; Value: Method: VIT2; Status: F Test: URINE CULTURE; Value: EXTD BRD SPCTRM BETA LACTAMASE -; Status: F Test: URINE CULTURE; Value: TRIMETHOPRIM/SULFAMETHOXAZOLE <=20 S; Status: F Test: URINE CULTURE; Value: AMPICILLIN >=32 R; Status: F Test: URINE CULTURE; Value: GENTAMICIN <=1 S; Status: F Test: URINE CULTURE; Value: NITROFURANTOIN 64 I; Status: F Test: URINE CULTURE; Value: CEFAZOLIN <=4 S; Status: F Test: URINE CULTURE; Value: LEVOFLOXACIN <=0.12 S; Status: F Test: URINE CULTURE; Value: TOBRAMYCIN <=1 S; Status: F Test: URINE CULTURE; Value: CEFTRIAXONE <=1 S; Status: F Test: URINE CULTURE; Value: CEFTAZIDIME <=1 S; Status: F Test: URINE CULTURE; Value: AMPICILLIN/SULBACTAM 8 S; Status: F Test: URINE CULTURE; Value: PIPERACILLIN/TAZOBACTAM <=4 S; Status: F Test: URINE CULTURE; Value: AZTREONAM <=1 S; Status: F Test: URINE CULTURE; Value: ERTAPENEM <=0.5 S; Status: F Test: URINE CULTURE; Value: MEROPENEM <=0.25 S; Status: F Test: URINE CULTURE; Value: TIGECYCLINE <=0.5 S; Status: F Test: URINE CULTURE; Value: CEFEPIME <=1 S; Status: F Lab Order: Basic Metabolic Profile; SPEC'M 03/13/16 15:07 Test: GLUCOSE, FASTING; Value: 174; Range: 80-110; Abnormal: Above high normal; Units: MG/DL; Status: F Test: BLOOD UREA NITROGEN; Value: 28; Range: 7-18; Abnormal: Above high normal; Units: MG/DL; Status: F Test: CREATININE FOR GFR; Value: 1.84; Range: 0.55-1.02; Abnormal: Above high normal; Units: MG/DL; Status: F Test: GLOMERULAR FILTRATION RATE; Value: 29.0; Range: >45; Abnormal: Below low normal; Status: F Test: SODIUM LEVEL; Value: 138; Range: 136-145; Units: MEQ/L; Status: F Test: POTASSIUM SERUM; Value: 3.9; Range: 3.5-5.1; Units: MEQ/L; Status: F Test: CHLORIDE LEVEL; Value: 101; Range: 98-107; Units: MEQ/L; Status: F Test: CARBON DIOXIDE LEVEL; Value: 26; Range: 21-32; Units: MEQ/L; Status: F Test: ANION GAP; Value: 11; Range: 8-16; Units: MEQ/L; Status: F Test: CALCIUM LEVEL; Value: 9.2; Range: 8.8-10.2; Units: MG/DL; Status: F Test Note: ; Units are mL/min/1.73 m2 Chronic Kidney Disease Staging per NKF: Stage I & II GFR >=60 Normal to Mildly Decreased Stage III GFR 30-59 Moderately Decreased Stage IV GFR 15-29 Severely Decreased Stage V GFR <15 Very Little GFR Left ESRD GFR <15 on [facility]IST Lab Order: CBC with Diff; SPEC'M 03/13/16 15:07 Test: WHITE BLOOD COUNT; Value: 11.2; Range: 4.0-10.0; Abnormal: Above high normal; Units: K/mm3; Status: F Test: RED BLOOD COUNT; Value: 3.62; Range: 4.00-5.40; Abnormal: Below low normal; Units: M/mm3; Status: F Test: HEMOGLOBIN; Value: 10.6; Range: 12.0-16.0; Abnormal: Below low normal; Units: g/dl; Status: F Test: HEMATOCRIT; Value: 32.6; Range: 36.0-47.0; Abnormal: Below low normal; Units: %; Status: F Test: MEAN CORPUSCULAR VOLUME; Value: 90.2; Range: 80.0-96.0; Units: fl; Status: F Test: MEAN CORPUSCULAR HEMOGLOBIN; Value: 29.3; Range: 27.0-33.0; Units: pg; Status: F Test: MEAN CORPUSCULAR HGB CONC; Value: 32.5; Range: 32.0-36.5; Units: g/dl; Status: F Test: RED CELL DISTRIBUTION WIDTH; Value: 14.0; Range: 11.5-14.5; Units: %; Status: F Test: PLATELET COUNT, AUTOMATED; Value: 266; Range: 150-450; Units: k/mm3; Status: F Test: NEUTROPHILS %; Value: 76.8; Range: 36.0-66.0; Abnormal: Above high normal; Units: %; Status: F Test: LYMPH %; Value: 13.2; Range: 24.0-44.0; Abnormal: Below low normal; Units: %; Status: F Test: MONO %; Value: 7.3; Range: 0.0-5.0; Abnormal: Above high normal; Units: %; Status: F Test: EOS %; Value: 1.2; Range: 0.0-3.0; Units: %; Status: F Test: BASO %; Value: 0.6; Range: 0.0-1.0; Units: %; Status: F Test: LARGE UNSTAINED CELL %; Value: 0.9; Range: 0.0-4.0; Units: %; Status: F Test: NEUTROPHILS #; Value: 8.6; Range: 1.8-7.7; Abnormal: Above high normal; Units: K/mm3; Status: F Test: LYMPH #; Value: 1.6; Range: 1.5-4.5; Units: K/mm3; Status: F Test: MONO #; Value: 0.8; Range: 0.0-0.8; Units: K/mm3; Status: F Test: EOS #; Value: 0.1; Range: 0.0-0.50; Units: K/mm3; Status: F Test: BASO #; Value: 0.1; Range: 0.0-0.2; Units: K/mm3; Status: F Test: LARGE UNSTAINED CELL #; Value: 0.1; Range: 0.0-0.4; Units: K/mm3; Status: F Lab Order: Lipase; SPEC'M 03/13/16 15:07 Test: LIPASE; Value: 186; Range: 73-393; Units: U/L; Status: F Lab Order: Liver Profile; SPEC'M 03/13/16 15:07 Test: AST/SGOT; Value: 17; Range: 15-37; Units: U/L; Status: F Test: ALT/SGPT; Value: 22; Range: 12-78; Units: U/L; Status: F Test: ALKALINE PHOSPHATASE; Value: 104; Range: 45-117; Units: U/L; Status: F Test: BILIRUBIN,TOTAL; Value: 0.5; Range: 0.2-1.0; Units: MG/DL; Status: F Test: BILIRUBIN,DIRECT; Value: 0.1; Range: 0.0-0.2; Units: MG/DL; Status: F Test: TOTAL PROTEIN; Value: 8.1; Range: 6.4-8.2; Units: GM/DL; Status: F Test: ALBUMIN; Value: 3.6; Range: 3.2-5.2; Units: GM/DL; Status: F Test: ALBUMIN/GLOBULIN RATIO; Value: 0.80; Range: 1.00-1.93; Abnormal: Below low normal; Status: F Lab Order: Lactic Acid (Batista tube on ice); SPEC'M 03/13/16 15:07 Test: LACTIC ACID LEVEL, LACTATE; Value: 1.0; Range: 0.4-2.0; Units: MMOL/L; Status: F Radiology Order: CT ABD & PELVIS: No Contrast Test: CT ABD & PELVIS: No Contrast REASON FOR EXAMINATION: Renal colic; CT abdomen pelvis without IV or bowel contrast:; ; Comparisons 02/08/2016.; ; There is a nonobstructive 3 mm right renal calculus in an upper pole blanca,; unchanged. There are no left renal calculi.; ; There is no hydronephrosis on the right on the left. No ureteral calculi are; identified. There are phleboliths in the pelvis, unchanged.; ; There is fullness of the left renal cortex, particularly the upper pole compared; to the right. There is perinephric stranding of the left kidney compared to the; right. These findings are similar to the prior study and a nonspecific, however,; pyelonephritis or neoplasm or some diagnostic considerations. Contrast enhanced; CT or MRI followup might be considered.; ; The visualized lung cruz are unremarkable.; ; The unenhanced hepatic parenchyma, gallbladder, pancreas and spleen are; unremarkable. The adrenals, abdominal aorta, and bowel are unremarkable except; for occasional colonic diverticuli in the ascending colon, transverse colon,; descending colon and sigmoid colon without evidence of diverticulitis.; ; Pelvis:; ; The the appendix is unremarkable. There is no ascites or adenopathy. The uterus; and adnexa are unremarkable. The bladder is collapsed and cannot be assessed.; ; Impression:; ; No hydronephrosis. There are findings in the left kidney as described which; could represent neoplasm or pyelonephritis and are similar appearance to the; prior study. Contrast enhanced CT or MRI followup might be considered.; ; Diverticulosis without diverticulitis.; ; ; Signed by; Ernie Castro MD 03/13/2016 04:53 P; Outcome: 18:11 Discharge ordered by Provider. btw 18:22 Discharge Assessment: Patient awake, alert and oriented x 3. No cognitive and/or ttb functional deficits noted. Patient verbalized understanding of disposition instructions. Patient awake and alert. patient administered narcotics - no. The following High Risk Discharge criteria are identified: None. Discharged to home ambulatory, with family. Condition: good Condition: stable Condition: improved. Discharge instructions given to patient, family, Instructed on discharge instructions, follow up and referral plans. medication usage, Demonstrated understanding of instructions, medications, Pt was receptive of discharge instructions/ teaching. Prescriptions given X 1. CT Study completed. Property sent home with patient. 18:23 Patient left the ED. ttb 03/15 14:28 urine culture reviewed by Dr Alvarez, no change in treatment.:. [facility] Signatures: Dispatcher [employer] EDMS Ernie Guerrero, RN Cat Petit RN RN [facility] Edna Ewing RN JUVENTINO srm Becca Benson, Reg Reg lg Mitch Field, Reg Reg kf3 Dawn Carlson RN RN abramjTex Hernandez, LENDING MANAGER LENDING MANAGER dd6 Paras Oliva PA PA btw Humaira Hinojosa, LENDING MANAGER LENDING MANAGER ct3 Jaron Livingston jml1 Karlee Weldon RN RN ttb Christian Shelton RN RN jensenb Brando Gauthier PA-C PA-C cc10 Tammy Olson RN RN ms18 Amy Shelton, LENDING MANAGER LENDING MANAGER bnb Corrections: (The following items were deleted from the chart) 03/13 14:37 14:35 Social history Smoking status: Patient states was never smoker of tobacco. No g barriers to communication noted, The patient speaks fluent Macedonian, dwg Chart Complete MTDD
== END 2016-03-13 18:23 | disposition home or self-care (01) ==
LOC: M ED 14:27
DX: N39.0 Urinary tract infection, site not specified (principal); N18.6 End stage renal disease; K57.90 Diverticulosis of intestine, part unspecified, without perforation or abscess without bleeding; E11.22 Type 2 diabetes mellitus with diabetic chronic kidney disease; I12.0 Hypertensive chronic kidney disease with stage 5 chronic kidney disease or end stage renal disease; E78.00 Pure hypercholesterolemia, unspecified; E03.9 Hypothyroidism, unspecified; E55.9 Vitamin D deficiency, unspecified; Z79.899 Other long term (current) drug therapy
CPT/HCPCS: 36415; 74176; 80048; 80076; 81001; 83605; 83690; 85025; 87088; 87186; 96361; 96365; 99284; J0696

== ENCOUNTER 2016-05-15 16:35 | Observation (INO) | payer OTHER ==
[~2016-05-15] VITALS: Ht 149.9 cm; Wt 53.8 kg
[2016-05-15] MEDS ORDERED: GLIM2TA PO (16:44)
[2016-05-15] MEDS ORDERED: NS 1,000 ML IV SCH (17:16)
[2016-05-15] MEDS ORDERED: ONDANSETRON 4MG/2ML VIAL (J2405) IV ONE (17:30)
[2016-05-15] MEDS ORDERED: MORPHINE 4 MG/ML 1ML SYRINGE IV ONE (17:30)
--- NOTE | 2016-05-15 17:43 | REP ---
Clinical: Left flank pain. Comparison: 03/13/2016, 02/08/2016. Findings: Moderate left perinephric stranding is again identified and similar to prior examinations. There is no evidence for hydroureteronephrosis, intrarenal, or obstructing ureteral calculi. Pyelonephritis and neoplasm are within differential diagnosis and require correlation with urinalysis. Perinephric stranding involving the right kidney with 2 mm nonobstructing calculus are similar to prior examinations as well but appear less acute. The bladder is collapsed and grossly unremarkable. Liver, spleen, pancreas, gallbladder, and bilateral adrenal glands are normal. The enteric system is without obstruction or acute inflammatory process. Normal terminal ileum and appendix are identified in the right lower quadrant. Scattered colonic and sigmoid diverticula noted without acute diverticulitis. Pelvis demonstrates partially collapsed bladder and stable uterus/adnexa. No pelvic fluid or ascites. No intraperitoneal adenopathy. No mass lesion. Lung bases clear/stable. Musculoskeletal structures demonstrate degenerative changes without focal osseous abnormality. Impression: 1. Moderate acute appearing left perinephric stranding similar to prior examinations. Differential diagnosis includes pyelonephritis and neoplasm. Correlation with urinalysis and contrast enhanced CT is recommended. Mild right-sided perinephric stranding and 2 mm nonobstructing right renal calculus are stable. 2. Scattered diverticula without acute diverticulitis. 3. No free fluid. No further acute intra-abdominal or pelvic pathology appreciated. Signed by Sagar Orosco MD 05/15/2016 05:35 P
[2016-05-15 17:47] LABS: BASO % 0.2 % (0.0-1.0); EOS # 0.2 K/mm3 (0.0-0.50); EOS % 2.1 % (0.0-3.0); LARGE UNSTAINED CELL # 0.1 K/mm3 (0.0-0.4); LARGE UNSTAINED CELL % 1.1 % (0.0-4.0); LYMPH # 2.2 K/mm3 (1.5-4.5); LYMPH % 17.2 % (24.0-44.0); MEAN CORPUSCULAR HEMOGLOBIN 28.7 pg (27.0-33.0); MEAN CORPUSCULAR VOLUME 89.6 fl (80.0-96.0); MONO # 0.9 K/mm3 (0.0-0.8); MONO % 6.9 % (0.0-5.0); NEUTROPHILS # 8.8 K/mm3 (1.8-7.7); NEUTROPHILS % 72.4 % (36.0-66.0); PLATELET COUNT, AUTOMATED 513 k/mm3 (150-450); RED CELL DISTRIBUTION WIDTH 14.4 % (11.5-14.5); WHITE BLOOD COUNT 12.2 K/mm3 (4.0-10.0)
[2016-05-15] MEDS ORDERED: ACETAMINOPHEN TAB 650MG DOSE (2X325MG) PO ONE (18:00)
[2016-05-15] MEDS ORDERED: cefTRIAXone SOD 1 GM in D5W MINI-BAG PLUS 50 ML IV ONE (18:00)
[2016-05-15 18:05] LABS: CREATININE FOR GFR 1.92 MG/DL (0.55-1.02); GLOMERULAR FILTRATION RATE 27.6 (>45); POTASSIUM SERUM 4.5 MEQ/L (3.5-5.1)
[2016-05-15] MEDS ORDERED: MORPHINE 2 MG/ML 1ML SYRINGE IV PRN (18:15)
[2016-05-15] MEDS ORDERED: DEXTROSE 50% 50 ML SYRINGE IV PRN (18:15)
[2016-05-15] MEDS ORDERED: ACETAMINOPHEN TAB 650MG DOSE (2X325MG) PO PRN (18:15)
[2016-05-15] MEDS ORDERED: ONDANSETRON 4MG/2ML VIAL (J2405) IV PRN (18:15)
[2016-05-15] MEDS ORDERED: GLUCAGON FOR INJ 1 MG VIAL (J1610) SC PRN (18:15)
[2016-05-15] MEDS ORDERED: GLUCOSE 4 GM CHEW TABLET PO PRN (18:15)
[2016-05-15] MEDS ORDERED: PERCOCET 5MG/325MG TAB PO PRN (18:15)
[2016-05-15] MEDS ORDERED: GLIM1TAB PO (18:33)
--- NOTE | 2016-05-15 19:30 | HPE ---
DATE OF ADMISSION: 05/15/2016 PRIMARY CARE PROVIDER: Dr. Hartley CHIEF COMPLAINT: Left flank pain. HISTORY OF PRESENT ILLNESS: A 70-year-old female recently returned from [place] where she was there visiting family for the last for 4-5 weeks. She has a past medical history of [id number] diabetes, hypertension, hyperlipidemia, hypothyroidism. She presents this evening with her daughter in the emergency department after having a fever earlier today with chills but no rigors. No nausea, vomiting. She has left-sided flank and abdominal pain with radiation to the left costovertebral angle (CVA) region. A CT scan did show pyelonephritis located on the left with perinephric stranding. She has a mild right-sided perinephric stranding, a 2 mm nonobstructing right renal calculus as well which appear to be stable. Scattered diverticulosis noted with no acute diverticulitis. No free fluid. There was some concern voiced by the family that she had had a few fevers while she was in [place] but to their knowledge, she was not in a malaria endemic region. However, the emergency room (ER) has already sent off peripheral smear for malaria testing. That is pending at this time and it may take a day or two for those results to come back. PAST MEDICAL HISTORY: Diabetes, hypertension, hyperlipidemia, hypothyroidism, vitamin D deficiency. PAST SURGICAL HISTORY: Bilateral cataract surgery. SOCIAL HISTORY: She lives at home with her son. Her daughter is accompanying her this evening. No alcohol. No tobacco use. Travel history as indicated above with recent return from [place]. No sick contacts to her knowledge. FAMILY HISTORY: Noncontributory. ALLERGIES: No known drug allergies. HOME MEDICATIONS: - Norvasc 10 mg daily - carvedilol 25 mg twice a day - chlorthalidone 25 mg daily - hydroxyzine 10 mg three times a day as needed - levothyroxine 50 mcg daily - losartan 100 mg at bedtime - metformin 1000 mg twice a day - pantoprazole 40 mg daily - simvastatin 20 mg daily - vitamin D 2000 units daily REVIEW OF SYSTEMS: CONSTITUTIONAL: She has had some fevers, chills, no rigors. No nausea, no headache, lightheadedness, no blurry vision or double vision, no difficulty with speech or swallow. PULMONARY: No productive sputum, cough or hemoptysis. CARDIOVASCULAR: She denies chest pain. No paroxysmal nocturnal dyspnea (PND) or orthopnea. GASTROINTESTINAL (GI): No nausea, vomiting, diarrhea. GENITOURINARY (): She does have left flank pain with history of recurrent pyelonephritis and urinary tract infections in the past, as well as the nonobstructing kidney stones. MUSCULOSKELETAL: She denies bone, muscle or joint pain, swelling, erythema. NEUROLOGIC: No paresthesias or paralysis. ENDOCRINE: Positive for diabetes. Positive for hypothyroidism. LYMPHATIC: No lumps, bumps, swelling in the neck, axilla or groin. No weight loss. HEMATOLOGY: Negative for bleeding disorder. No history of venous thromboembolism. ONCOLOGY: Negative for cancer. PSYCHIATRIC: No history of depression or suicidal ideation. No auditory or visual hallucinations. 10-point review of systems complete; pertinent positives are listed. PHYSICAL EXAMINATION: VITAL SIGNS: Temperature is 100.4, pulse 64, respiratory rate 16, blood pressure 127/71, SPO2 is 97% on room air. GENERAL: The patient appears to be in no acute distress. She is alert and oriented, pleasant. HEENT: Unremarkable. LUNGS: Clear. HEART: Regular rate and rhythm. ABDOMEN: Soft except for some vague tenderness in the left lower quadrant with radiation to left flank pain. She does have some mild left CVA tenderness. No CVA tenderness on the right. EXTREMITIES: No edema. No calf tenderness. NEUROLOGIC: Cranial nerves II-XII grossly intact. LABORATORY DATA: White count is 12.2, hemoglobin 10.9, platelets 513,000. Sodium is 136, potassium 4.5, chloride is 101, bicarb 28, anion gap 7, BUN 31, creatinine 1.92 up from her baseline of 1.5, glucose 115, lactic acid 0.9, calcium 9.0. MICROBIOLOGY: Urinalysis 1+ blood, 3+ leukocyte esterase, 87 WBCs, 2+ bacteria. Blood culture , urine culture and malaria smear are pending at this time. IMPRESSION: Ms. Anna is a pleasant 70-year-old female who returned from [place] with left flank pain, fever and signs and symptoms of pyelonephritis. Will need to be admitted for intravenous (IV) fluids, pain control and antibiotics. PROBLEM LIST: 1. Left pyelonephritis with cultures pending. 2. Recent travel from [place] with malaria smear pending. 3. Mild leukocytosis likely related to stress demargination rather than infection. 4. Eight non-insulin dependent diabetes. 5. Hyperlipidemia. 6. Hypothyroidism. 7. Hypertension. 8. Vitamin D deficiency. 9. Gastroesophageal reflux disease (GERD). PLAN: The patient will be admitted to medicine/surgery per Dr. Washington. Continue with gentle IV fluid hydration and pain control, IV Rocephin. Continue with her home medications. Cultures are pending. She will be observed overnight and likely ready for discharge tomorrow. Deep venous thrombosis (DVT) prophylaxis with heparin. Prognosis is good and I do anticipate that she will be ready for discharge home tomorrow. BILLY
--- NOTE | 2016-05-15 19:35 | HPE ---
DATE OF ADMISSION: 05/15/2016 ADDENDUM TO HISTORY AND PHYSICAL FOR 05/15/2016 The patient does have some mild acute kidney injury. Will hold on her losartan and chlorthalidone for now. I also will hold her glimepiride and metformin until she is ready for discharge tomorrow morning and her renal functions returned to baseline.
[2016-05-15 20:50] VITALS: BP 113/56
[2016-05-15] MEDS: HumaLOG INSULIN (NovoLOG) PER UNIT SC SCH (21:00)
[2016-05-15] MEDS: PANTOPRAZOLE 40MG TAB (PROTONIX) PO SCH (22:54)
[2016-05-15] MEDS: HEPARIN SOD (PORCINE) 5000 UNITS/ML VIAL SC SCH (22:55)
[2016-05-15] MEDS: CARVedilol 12.5 MG TAB PO SCH (22:55)
[2016-05-15] MEDS: NS 1,000 ML IV SCH (22:55)
[2016-05-15] MEDS: DOCUSATE SODIUM 100 MG CAP PO SCH (22:56)
[2016-05-15] MEDS: hydrOXYzine 10 MG TAB PO SCH (23:31)
[2016-05-16 06:00] VITALS: BP 100/59
[2016-05-16] MEDS: HEPARIN SOD (PORCINE) 5000 UNITS/ML VIAL SC SCH ×3 (06:44→22:36)
[2016-05-16] MEDS: LEVOTHYROXINE 0.05 MG TAB (50 MCG) PO SCH (06:44)
[2016-05-16] MEDS: NS 1,000 ML IV SCH ×2 (06:45→22:36)
[2016-05-16 06:50] LABS: ALBUMIN 2.8 GM/DL (3.2-5.2); CALCIUM LEVEL 8.4 MG/DL (8.8-10.2); CREATININE FOR GFR 1.84 MG/DL (0.55-1.02); PHOSPHORUS LEVEL 3.9 MG/DL (2.5-4.9); POTASSIUM SERUM 4.4 MEQ/L (3.5-5.1)
[2016-05-16 06:52] LABS: MEAN CORPUSCULAR HEMOGLOBIN 29.2 pg (27.0-33.0); MEAN CORPUSCULAR HGB CONC 32.4 g/dl (32.0-36.5); MEAN CORPUSCULAR VOLUME 90.3 fl (80.0-96.0); RED CELL DISTRIBUTION WIDTH 14.5 % (11.5-14.5); WHITE BLOOD COUNT 9.4 K/mm3 (4.0-10.0)
[2016-05-16] MEDS: HumaLOG INSULIN (NovoLOG) PER UNIT SC SCH ×4 (07:30→21:00)
[2016-05-16] MEDS: amLODIPine 10 MG TAB PO SCH ×2 (09:00→15:29)
[2016-05-16] MEDS: CARVedilol 12.5 MG TAB PO SCH ×3 (09:00→21:00)
[2016-05-16] MEDS: hydrOXYzine 10 MG TAB PO SCH ×3 (11:23→22:37)
[2016-05-16] MEDS: VITAMIN D 1,000 INTERNATIONAL UNITS TABLET PO SCH (11:23)
[2016-05-16] MEDS: DOCUSATE SODIUM 100 MG CAP PO SCH ×2 (11:25→22:36)
[2016-05-16] MEDS: PANTOPRAZOLE 40MG TAB (PROTONIX) PO SCH ×2 (11:25→22:36)
[2016-05-16] MEDS: SIMVASTATIN 20 MG TAB PO SCH (11:25)
--- NOTE | 2016-05-16 12:07 | IPNPDOC ---
Subjective Date Seen The patient was seen on 05/16/16. Subjective Chief Complaint/HPI The patient is a 70-year-old female admitted with a reason for visit of Acute Vomiting;Pyelonephritis. Events since last encounter pt seen and examined, her was also in the room she still complaining of flank pain, no fevers or chills, no overnight events Tmax 100.4 at 5pm last night Objective Physical Examination General Exam: Positive: Alert, No Acute Distress Neck Exam: Positive: Supple, Negative: JVD, thyromegaly Chest Exam: Positive: Clear to auscultation, Normal air movement Heart Exam: Positive: Normal S1, Normal S2, Rate Normal, Regular Rhythm, Negative: Murmurs, Rubs Abdomen Exam: Positive: Normal bowel sounds, Soft, Negative: Hepatospenomegaly, Tenderness Extremity Exam: Positive: Normal pulses, Negative: Clubbing, Cyanosis, Edema Assessment /Plan Problems (1) Pyelonephritis Status: Acute Problem Text: * pt has history of UTI, previous klebsiella * will continue IV rocephin until final results (2) Spgkc-vs-tehsycu kidney injury Status: Acute Problem Text: * likely worsened due to infection and some dehydration * will continue IV fluids * 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 (3) CKD (chronic kidney disease) Status: Chronic Response to Treatment: Stable Problem Text: * pt follows up with dr Hernandez outpt * baseline 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 study clerk around 1.7-1.6 (4) HTN (hypertension) Status: Chronic Response to Treatment: Stable Problem Text: * continue norvasc and coreg * her losartan was held due to DEISI (5) HLD (hyperlipidemia) Status: Chronic Response to Treatment: Stable Problem Text: * continue zocor (6) Diabetes Status: Chronic Response to Treatment: Stable Problem Text: * oral medication were held * pt on ISS and consistent carb diet while in the hospital (7) Hypothyroidism Status: Chronic Problem Text: continue synthroid Plan/VTE VTE Prophylaxis Ordered?: Yes VS, I&O, 24H, Fishbone Vital Signs/I&O Vital Signs Date Time Temp Pulse Resp B/P Pulse Ox O2 Delivery O2 Flow Rate FiO2 05/16/16 09:00 73 100/59 05/16/16 06:00 99.1 16 93 Room Air I&O- Last 24 Hours up to 6 AM 05/16/16 06:00 Intake Total 410 ml Output Total 400 ml Balance 10 ml Laboratory Data 24H LABS Laboratory Tests 2 05/15/16 17:30: Anion Gap 7L, White Blood Count 12.2H, Red Blood Count 3.81L, Hemoglobin 10.9L, Hematocrit 34.1L, Mean Corpuscular Volume 89.6, Mean Corpuscular Hemoglobin 28.7 , Mean Corpuscular Hemoglobin Concent 32.0, Red Cell Distribution Width 14.4, Platelet Count 513H, Neutrophils (%) (Auto) 72.4H, Lymphocytes (%) (Auto) 17.2L , Monocytes (%) (Auto) 6.9H, Eosinophils (%) (Auto) 2.1, Basophils (%) (Auto) 0.2, Neutrophils # (Auto) 8.8H, Lymphocytes # (Auto) 2.2, Monocytes # (Auto) 0.9H, Eosinophils # (Auto) 0.2, Basophils # (Auto) 0.0, Blood Urea Nitrogen 31H , Creatinine 1.92H, Sodium Level 136, Potassium Level 4.5, Chloride Level 101, Carbon Dioxide Level 28, Calcium Level 9.0, Glomerular Filtration Rate 27.6L, Lactic Acid Level 0.9, Large Unclassified Cells # 0.1, Large Unclassified Cells % 1.1, Urine Amorphous Sediment , Urine Appearance CLOUDYH, Urine Color YELLOW, Urine pH 6.0, Urine Specific [place] 1.011, Urine Protein NEGATIVE, Urine Glucose (UA) NEGATIVE, Urine Ketones NEGATIVE, Urine Urobilinogen 0.2, Urine Bilirubin NEGATIVE, Urine Leukocyte Esterase 3+H, Urine Bacteria (Auto) 2+H, Urine Blood 1+H, Urine Calcium Carbonate Cryst(Auto) , Urine Calcium Oxalate Cryst (Auto) , Urine Calcium Phosphate Ynes (Auto) , Urine Cellular Casts , Urine Cystine Crystals , Urine Granular Casts (Auto) , Urine Hyaline Casts (Auto ) 0, Urine Leucine Crystals , Urine Mucus (Auto) , Urine Nitrite NEGATIVE, Urine Oval Fat Bodies (Auto) , Urine RBC (Auto) 11H, Urine Renal Epithelial Cells , Urine Sperm (Auto) , Urine Squamous Epithelial Cells 53, Urine Transitional Epithelial Cells , Urine Trichomonas (Auto) , Urine Triple Phosphate Cryst (Auto) , Urine Tyrosine Crystals , Urine Uric Acid Crystals ( Auto) , Urine WBC (Auto) 87H, Urine Waxy Casts (Auto) , Urine Yeast-Like Cells ( Auto) 4/1/17 18:40: Bedside Glucose (Misc Panel) 116H 05/15/16 20:56: Bedside Glucose (Misc Panel) 221H 05/16/16 06:08: Anion Gap 10, Blood Urea Nitrogen 30H, Creatinine 1.84H, Sodium Level 138, Potassium Level 4.4, Chloride Level 105, Carbon Dioxide Level 23, Calcium Level 8.4L, Glomerular Filtration Rate 29.0L, Albumin 2.8L, Phosphorus Level 3.9 CBC/BMP Laboratory Tests 05/15/16 17:30 Calcium Level 9.0, Red Blood Count 3.81 L, Mean Corpuscular Volume 89.6, Mean Corpuscular Hemoglobin 28.7, Mean Corpuscular Hemoglobin Concent 32.0, Red Cell Distribution Width 14.4, Neutrophils (%) (Auto) 72.4 H, Lymphocytes (%) (Auto) 17.2 L, Monocytes (%) (Auto) 6.9 H, Eosinophils (%) (Auto) 2.1, Basophils (%) ( Auto) 0.2, Neutrophils # (Auto) 8.8 H, Lymphocytes # (Auto) 2.2, Monocytes # ( Auto) 0.9 H, Eosinophils # (Auto) 0.2, Basophils # (Auto) 0.0 05/16/16 06:08 Red Blood Count 3.16 L, Mean Corpuscular Volume 90.3, Mean Corpuscular Hemoglobin 29.2, Mean Corpuscular Hemoglobin Concent 32.4, Red Cell Distribution Width 14.5, Anion Gap 10 Microbiology Microbiology 05/15/16 Blood Culture, Received Pending 05/15/16 Blood Culture, Received Pending 05/15/16 Malaria Smear (SHALOM) - Preliminary, Resulted 05/15/16 Urine Culture, Received Pending ELVIN CALLOWAY DO May 16, 2016 12:07
[2016-05-16 14:00] VITALS: BP 150/67
[2016-05-16 15:14] VITALS: BP 158/76
[2016-05-16] MEDS: cefTRIAXone SOD 1 GM in D5W MINI-BAG PLUS 50 ML IV SCH (18:49)
[2016-05-16 22:00] VITALS: BP 99/54
[2016-05-17 06:00] VITALS: BP 131/61
[2016-05-17] MEDS: HEPARIN SOD (PORCINE) 5000 UNITS/ML VIAL SC SCH ×3 (06:58→22:12)
[2016-05-17] MEDS: LEVOTHYROXINE 0.05 MG TAB (50 MCG) PO SCH (06:58)
[2016-05-17 07:19] LABS: MEAN CORPUSCULAR HGB CONC 32.3 g/dl (32.0-36.5); MEAN CORPUSCULAR VOLUME 89.7 fl (80.0-96.0); RED CELL DISTRIBUTION WIDTH 14.3 % (11.5-14.5); WHITE BLOOD COUNT 8.2 K/mm3 (4.0-10.0)
[2016-05-17 07:37] LABS: ALBUMIN 2.9 GM/DL (3.2-5.2); CALCIUM LEVEL 8.5 MG/DL (8.8-10.2); CREATININE FOR GFR 1.81 MG/DL (0.55-1.02); GLOMERULAR FILTRATION RATE 29.6 (>45); PHOSPHORUS LEVEL 3.5 MG/DL (2.5-4.9); POTASSIUM SERUM 4.7 MEQ/L (3.5-5.1)
[2016-05-17] MEDS: NS 1,000 ML IV SCH ×2 (07:44→20:14)
[2016-05-17] MEDS: HumaLOG INSULIN (NovoLOG) PER UNIT SC SCH ×4 (07:54→21:00)
[2016-05-17] MEDS: amLODIPine 10 MG TAB PO SCH (10:22)
[2016-05-17] MEDS: hydrOXYzine 10 MG TAB PO SCH ×3 (10:22→22:13)
[2016-05-17] MEDS: VITAMIN D 1,000 INTERNATIONAL UNITS TABLET PO SCH (10:23)
[2016-05-17] MEDS: DOCUSATE SODIUM 100 MG CAP PO SCH ×2 (10:23→22:13)
[2016-05-17] MEDS: SIMVASTATIN 20 MG TAB PO SCH (10:24)
[2016-05-17] MEDS: PANTOPRAZOLE 40MG TAB (PROTONIX) PO SCH ×2 (10:24→22:13)
[2016-05-17] MEDS: CARVedilol 12.5 MG TAB PO SCH ×2 (10:24→22:13)
[2016-05-17 13:45] VITALS: O2SAT 95
[2016-05-17] MEDS: cefTRIAXone SOD 1 GM in D5W MINI-BAG PLUS 50 ML IV SCH (18:11)
--- NOTE | 2016-05-17 19:15 | IPNPDOC ---
Subjective Date Seen The patient was seen on 05/17/16. Subjective Chief Complaint/HPI The patient is a 70-year-old female admitted with a reason for visit of Acute Vomiting;Pyelonephritis. Constitutional: Reports: Chills, Fever, Denies: Night Sweats Gastrointestinal: Denies: Abdominal Pain, Constipation, Diarrhea, Nausea, Vomiting Genitourinary: Reports: Other Symptoms (cva tenderness) Objective Physical Examination General Exam: Positive: Alert, No Acute Distress Neck Exam: Positive: Supple, Negative: JVD, thyromegaly Chest Exam: Positive: Clear to auscultation, Normal air movement Heart Exam: Positive: Normal S1, Normal S2, Rate Normal, Regular Rhythm, Negative: Murmurs, Rubs Abdomen Exam: Positive: Normal bowel sounds, Soft, Negative: Hepatospenomegaly, Tenderness Extremity Exam: Positive: Normal pulses, Negative: Clubbing, Cyanosis, Edema Assessment /Plan Problems (1) Pyelonephritis Status: Acute Problem Text: * pt has history of UTI, previous klebsiella * Klebsiella pansensitive * pt continues to spike fevers will d/c once afebrile for 24-48 hours * Ct showed perinephric stranding which maybe due to infection vs neoplasm, repeat CT in 2 weeks once UTI is adequately treated (2) CKD (chronic kidney disease) Status: Chronic Response to Treatment: Stable Problem Text: * pt follows up with dr Hernandez outpt * 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 (3) HTN (hypertension) Status: Chronic Response to Treatment: Stable Problem Text: * continue norvasc and coreg * her losartan was held due to DEISI (4) HLD (hyperlipidemia) Status: Chronic Response to Treatment: Stable Problem Text: * continue zocor (5) Diabetes Status: Chronic Response to Treatment: Stable Problem Text: * oral medication were held * pt on ISS and consistent carb diet while in the hospital (6) Hypothyroidism Status: Chronic Problem Text: continue synthroid Plan/VTE VTE Prophylaxis Ordered?: Yes VS, I&O, 24H, Fishbone Vital Signs/I&O Vital Signs Date Time Temp Pulse Resp B/P Pulse Ox O2 Delivery O2 Flow Rate FiO2 05/17/16 13:45 95 Nasal Cannula 2.0 05/17/16 10:24 92 127/92 05/17/16 06:00 98.8 18 I&O- Last 24 Hours up to 6 AM 05/17/16 06:00 Intake Total 4151 ml Output Total 1700 ml Balance 2451 ml Laboratory Data 24H LABS Laboratory Tests 2 05/16/16 21:16: Bedside Glucose (Misc Panel) 174H 05/17/16 06:45: Albumin 2.9L, Blood Urea Nitrogen 26H, Creatinine 1.81H, Sodium Level 140, Potassium Level 4.7, Chloride Level 107, Carbon Dioxide Level 26, Anion Gap 7L, Calcium Level 8.5L, Glomerular Filtration Rate 29.6L, Phosphorus Level 3.5 05/17/16 11:33: Bedside Glucose (Misc Panel) 137H 05/17/16 16:31: Bedside Glucose (Misc Panel) 149H CBC/BMP Laboratory Tests 05/17/16 06:45 Anion Gap 7 L, Red Blood Count 3.31 L, Mean Corpuscular Volume 89.7, Mean Corpuscular Hemoglobin 29.0, Mean Corpuscular Hemoglobin Concent 32.3, Red Cell Distribution Width 14.3 Microbiology Microbiology 05/15/16 Blood Culture - Preliminary, Resulted No growth after 24 hours . All specim... 05/15/16 Blood Culture - Preliminary, Resulted No Growth after 48 hours. All Specime... 05/15/16 Malaria Smear (SHALOM) - Final, Complete 05/15/16 Urine Culture - Final, Complete Klebsiella Pneumoniae ELVIN CALLOWAY DO May 17, 2016 19:15
[2016-05-17 22:00] VITALS: BP 124/60
[2016-05-18 06:00] VITALS: BP 119/56
[2016-05-18] MEDS: HEPARIN SOD (PORCINE) 5000 UNITS/ML VIAL SC SCH (06:22)
[2016-05-18] MEDS: LEVOTHYROXINE 0.05 MG TAB (50 MCG) PO SCH (06:22)
[2016-05-18 06:37] LABS: MEAN CORPUSCULAR HEMOGLOBIN 29.5 pg (27.0-33.0); MEAN CORPUSCULAR VOLUME 89.4 fl (80.0-96.0); RED CELL DISTRIBUTION WIDTH 14.6 % (11.5-14.5); WHITE BLOOD COUNT 6.3 K/mm3 (4.0-10.0)
[2016-05-18 07:28] LABS: CALCIUM LEVEL 8.8 MG/DL (8.8-10.2); CREATININE FOR GFR 1.73 MG/DL (0.55-1.02); GLOMERULAR FILTRATION RATE 31.2 (>45); PHOSPHORUS LEVEL 3.1 MG/DL (2.5-4.9); POTASSIUM SERUM 4.6 MEQ/L (3.5-5.1)
[2016-05-18 08:10] VITALS: BP 119/56
[2016-05-18] MEDS: CARVedilol 12.5 MG TAB PO SCH (08:10)
[2016-05-18] MEDS: VITAMIN D 1,000 INTERNATIONAL UNITS TABLET PO SCH (08:10)
[2016-05-18] MEDS: hydrOXYzine 10 MG TAB PO SCH (08:10)
[2016-05-18] MEDS: PANTOPRAZOLE 40MG TAB (PROTONIX) PO SCH (08:10)
[2016-05-18] MEDS: amLODIPine 10 MG TAB PO SCH (08:10)
[2016-05-18] MEDS: DOCUSATE SODIUM 100 MG CAP PO SCH (08:10)
[2016-05-18] MEDS: HumaLOG INSULIN (NovoLOG) PER UNIT SC SCH ×2 (08:11→12:41)
[2016-05-18] MEDS: SIMVASTATIN 20 MG TAB PO SCH (08:11)
[2016-05-18] MEDS: NS 1,000 ML IV SCH (09:28)
[2016-05-18] MEDS ORDERED: LEVA250T PO (12:51)
--- NOTE | 2016-05-18 15:52 | DS.PDOC ---
Discharge Summary General Date of Admission May 15, 2016 at 18:14 Date of Discharge May 18, 2016 at 14:00 Attending Physician: FREDDY MCDANIEL MD Discharge Summary PROCEDURES PERFORMED DURING STAY: None. ADMITTING/DISCHARGE DIAGNOSES: 1. Left pyelonephritis 2. ? Left renal mass - will have a CAT scan repeated by Dr. Hernandez outpatient. 3. Hypertension 4. Hyperlipidemia 5. Hypothyroidism 6. GERD 7. Diabetes mellitus COMPLICATIONS/CHIEF COMPLAINT: Acute Vomiting;Pyelonephritis. HISTORY OF PRESENT ILLNESS/HOSPITAL COURSE: . This is a 70-year-old female past with history of diabetes, hypertension, hyperlipidemia presents with left flank pain as well as fevers. The patient had CVA tenderness on presentation. CT of the abdomen and pelvis noting left pyelonephritis. Patient was admitted and placed on IV antibiotics. The patient tolerated therapy well. Patient's meld denies any CVA tenderness. Has been afebrile with a past with 4 hours. Leukocytosis improved. Patient will be discharged home today on Levaquin and will be following up with PCP as well as Dr. Hernandez. Dr. Hernandez may be repeating CAT scan of the abdomen and pelvis given this question will mass. DISCHARGE MEDICATIONS: Please see below. ALLERGIES: Please see below. PHYSICAL EXAMINATION ON DISCHARGE: VITAL SIGNS: Please see below. LABORATORY DATA: Please see below. IMAGING: CT abdomen pelvis on 05/15/16 Impression: 1. Moderate acute appearing left perinephric stranding similar to prior examinations. Differential diagnosis includes pyelonephritis and neoplasm. Correlation with urinalysis and contrast enhanced CT is recommended. Mild right-sided perinephric stranding and 2 mm nonobstructing right renal calculus are stable. 2. Scattered diverticula without acute diverticulitis. 3. No free fluid. No further acute intra-abdominal or pelvic pathology appreciated. PROGNOSIS: Fair ACTIVITY: As tolerated. DIET: Low-sodium DISCHARGE PLAN: Discharge home DISPOSITION: 01 Home, Self-Care. DISCHARGE INSTRUCTIONS: 1. F/u with PCP and Dr. Bland in 1-2 weeks. DISCHARGE CONDITION: Stable. TIME SPENT ON DISCHARGE: Greater than 30 minutes. Vital Signs/I&Os Vital Signs Date Time Temp Pulse Resp B/P Pulse Ox O2 Delivery O2 Flow Rate FiO2 05/18/16 08:30 Room Air 05/18/16 08:10 72 119/56 05/18/16 06:00 98.5 18 97 05/17/16 13:45 2.0 I&O- Last 24 Hours up to 6 AM 05/18/16 06:00 Intake Total 3740 ml Balance 3740 ml Laboratory Data Labs 24H Laboratory Tests 2 05/17/16 16:31: Bedside Glucose (Misc Panel) 149H 05/17/16 19:58: Bedside Glucose (Misc Panel) 121H 05/18/16 06:24: Albumin 3.0L, Blood Urea Nitrogen 21H, Creatinine 1.73H, Sodium Level 140, Potassium Level 4.6, Chloride Level 108H, Carbon Dioxide Level 25, Anion Gap 7L , Calcium Level 8.8, Glomerular Filtration Rate 31.2L, Phosphorus Level 3.1 05/18/16 11:52: Bedside Glucose (Misc Panel) 216H CBC/BMP Laboratory Tests 05/18/16 06:24 Anion Gap 7 L, Red Blood Count 3.25 L, Mean Corpuscular Volume 89.4, Mean Corpuscular Hemoglobin 29.5, Mean Corpuscular Hemoglobin Concent 33.0, Red Cell Distribution Width 14.6 H FSBS Laboratory Tests Test 05/17/16 16:31 05/17/16 19:58 05/18/16 11:52 Range/Units Bedside Glucose (Misc Panel) 149 121 216 80-115 MG/DL Microbiology Microbiology 05/15/16 Blood Culture - Preliminary, Resulted No Growth after 48 hours. All Specime... 05/15/16 Blood Culture - Preliminary, Resulted No Growth after 48 hours. All Specime... 05/15/16 Malaria Smear (SHALOM) - Final, Complete 05/15/16 Urine Culture - Final, Complete Klebsiella Pneumoniae Discharge Medications Scheduled Amlodipine Besylate (Amlodipine Besylate) 10 Mg Tab 10 MG PO DAILY (Reported) Carvedilol (Carvedilol) 25 Mg Tab 25 MG PO BID (Reported) Chlorthalidone (Chlorthalidone) 12.5 Mg Halftab 12.5 MG PO BID (Reported) Glimepiride (Amaryl) 2 Mg Tab 1 MG PO DAILY (Reported) Glimepiride (Glimepiride) 1 Mg Tab 1 MG PO DAILY (Reported) Hydroxyzine HCl (Hydroxyzine HCl) 10 Mg Tab 10 MG PO TID (Reported) Levofloxacin Hemihydrate (Levaquin) 250 Mg Tab 250 MG PO DAILY Levothyroxine Sodium (Synthroid) 50 Mcg Tab 50 MCG PO DAILY (Reported) Pantoprazole Sodium (Pantoprazole Sodium) 40 Mg Tab 40 MG PO BID (Reported) SECOND DOSE AT DINNERTIME Simvastatin (Simvastatin) 20 Mg Tab 20 MG PO DAILY (Reported) Vitamin D (Vitamin D) 1,000 Unit Cap 5,000 UNIT PO DAILY (Reported) Allergies Coded Allergies: No Known Allergies (Unverified , 02/08/16) FREDDY MCDANIEL MD May 18, 2016 15:52
[2016-05-20] MEDS ORDERED: INFLUENZA VIRUS VACCINE HIGH DOSE 0.5 ML SYRINGE (90662) IM SCH (13:00)
[2016-05-20] MEDS ORDERED: PREVNAR 13 VACCINE SYRINGE (CPT CODE:90670) IM ONE (13:00)
== END 2016-05-18 14:00 | disposition home or self-care (01) ==
LOC: M ED 17:20 → M ED INP 18:14 → M MS5PR 20:47 → INTOOBSV 05-18 11:36 → OBSVTOIN 05-18 11:36
PROVIDERS: ADMIT Hospitalist; ATTEND Internal Medicine
DX: N10 Acute pyelonephritis (principal); B96.1 Klebsiella pneumoniae [K. pneumoniae] as the cause of diseases classified elsewhere; R93.5 Abnormal findings on diagnostic imaging of other abdominal regions, including retroperitoneum; I12.9 Hypertensive chronic kidney disease with stage 1 through stage 4 chronic kidney disease, or unspecified chronic kidney disease; E78.5 Hyperlipidemia, unspecified; E03.9 Hypothyroidism, unspecified; K21.9 Gastro-esophageal reflux disease without esophagitis; E11.22 Type 2 diabetes mellitus with diabetic chronic kidney disease; N20.0 Calculus of kidney; K57.90 Diverticulosis of intestine, part unspecified, without perforation or abscess without bleeding; N18.9 Chronic kidney disease, unspecified; N17.9 Acute kidney failure, unspecified; D72.829 Elevated white blood cell count, unspecified; R50.9 Fever, unspecified; R10.9 Unspecified abdominal pain; Z79.899 Other long term (current) drug therapy; Z87.440 Personal history of urinary (tract) infections
CPT/HCPCS: 36415; 74176; 80048; 80069; 81001; 83605; 85025; 85027; 87040; 87088; 87186; 87207; 96365; 96366; 96372; 96375; 99284; J0696; J2405

== ENCOUNTER → 2016-08-30 | Outpatient (REF) | payer OTHER ==
[~2016-08-30] MED LIST changes: +GLIM1TAB PO; +GLIM2TA PO; +HYDR-643 PO; -HYDR10T PO; +LEVA1TAB PO; -METF1000 PO; +METF10004 PO; -VITA100037 PO; +VITA100067 PO
[2016-08-30 21:00] LABS: FOLLICLE STIMULATING HORMONE 108.6 mIU/mL; LUTEINIZING HORMONE 68.3 mIU/mL
[2016-09-02 14:10] LABS: FREE T4 1.34 NG/DL (0.76-1.46)
== END ==
LOC: M LAB REF 18:11
PROVIDERS: ATTEND Internal Medicine Nephrology
DX: E03.9 Hypothyroidism, unspecified (principal)

== ENCOUNTER → 2017-03-09 | Outpatient (CLI) | payer OTHER | LOC: M WHC 08:17 | DX: Z12.31 Encounter for screening mammogram for malignant neoplasm of breast (principal) | CPT/HCPCS: 77067 ==

== ENCOUNTER → 2017-03-10 | Outpatient (REF) | payer OTHER ==
[2017-03-10 20:58] LABS: FREE T4 1.35 NG/DL (0.76-1.46)
== END ==
LOC: M LAB REF 17:54
DX: E03.9 Hypothyroidism, unspecified (principal)

== ENCOUNTER → 2017-08-15 | Outpatient (REF) | payer OTHER ==
[2017-08-15 19:52] LABS: FREE T4 1.32 NG/DL (0.76-1.46)
== END ==
LOC: M LAB REF 17:10
DX: E03.9 Hypothyroidism, unspecified (principal)
CPT/HCPCS: 84443

== ENCOUNTER → 2017-10-28 | Outpatient (REF) | payer OTHER | LOC: M LAB REF 13:48 | DX: R22.1 Localized swelling, mass and lump, neck (principal) ==

== ENCOUNTER → 2018-05-03 | Outpatient (CLI) | payer OTHER ==
[~2018-05-03] MED LIST changes: -AMLO10TA2 PO; +AMLO10TA5 PO; -LEVA1TAB PO; +LEVA250T13 PO; -LOSA100T36 PO; +LOSA100T50 PO; -PANT40TA2 PO; +PANT40TA3 PO
--- NOTE | 2018-05-04 10:23 | REPMRS ---
Patient History The patient states she has not had a clinical breast exam in over a year. Patient is postmenopausal. Family history of breast cancer at age 50 or over in mother. No Hormone Replacement Therapy [facility] Woman Screen Mammo: May 03, 2018 - Exam #: [id number] Bilateral CC and MLO view(s) were taken. Technologist: Smita Bae, Technologist Prior study comparison: March 09, 2017, digital woman screen mammo performed at [facility]. December 17, 2015, digital woman screen mammo performed at [facility]. September 11, 2014, digital woman screen mammo performed at [facility]. FINDINGS: The breast tissue is almost entirely fat. There has been no change in the appearance of the mammogram from the prior studies. There is no interval development of dominant mass, architectural distortion, or clustered microcalcification typical of malignancy. 3-D tomosynthesis shows no additional findings. Assessment: BI-RADS/ACR category 1 mammogram. Negative Mammogram. Recommendation Routine screening mammogram of both breasts in 1 year (for women over age 40). This patient's Lifetime Breast Cancer RIsk is estimated at 10.0 %. This mammogram was interpreted with the aid of an FDA-approved computer-aided dectection system. Electronically Signed By: Karlo Watkins MD 05/04/18 [id number]
== END ==
LOC: M WHC 14:47
PROVIDERS: ATTEND Family Medicine
DX: Z12.31 Encounter for screening mammogram for malignant neoplasm of breast (principal); Z80.3 Family history of malignant neoplasm of breast

== ENCOUNTER → 2018-08-21 | Outpatient (REF) | payer OTHER ==
[~2018-08-21] MED LIST changes: -GLIM2TA PO; +GLIM2TAB29 PO
== END ==
LOC: M LAB REF 17:54
PROVIDERS: ATTEND Internal Medicine Nephrology
DX: N39.0 Urinary tract infection, site not specified (principal)

== ENCOUNTER → 2018-09-01 | Outpatient (REF) | payer OTHER | LOC: M LAB REF 12:51 | PROVIDERS: ATTEND Internal Medicine Nephrology | DX: N39.0 Urinary tract infection, site not specified (principal) ==

== ENCOUNTER → 2019-10-30 | Outpatient (REF) | payer OTHER ==
[~2019-10-30] MED LIST changes: -AMLO10TA5 PO; +AMLO1TAB25 PO; -GLIM1TAB PO; +GLIM1TAB4 PO; +PANT40TA29 PO; -PANT40TA3 PO; -SIMV20TA2 PO; +SIMV20TA22 PO
[2019-10-30 18:20] LABS: FREE T4 1.42 NG/DL (0.76-1.46); THYROID STIMULATING HORMONE 2.04 uIU/ML (0.358-3.740)
== END ==
LOC: M LAB REF 17:08
PROVIDERS: ATTEND Internal Medicine Nephrology
DX: N18.4 Chronic kidney disease, stage 4 (severe) (principal); E03.9 Hypothyroidism, unspecified

== ENCOUNTER → 2020-03-04 | Outpatient (CLI) | payer SELFPAY | LOC: M LABSMTC 12:14 | PROVIDERS: ATTEND Pediatrics | DX: Z20.822 Contact with and (suspected) exposure to COVID-19 (principal) ==

== ENCOUNTER → 2020-05-12 | Outpatient (REF) | payer OTHER ==
[2020-05-12 19:09] LABS: FREE T4 1.34 NG/DL (0.76-1.46); THYROID STIMULATING HORMONE 2.43 uIU/ML (0.358-3.740)
== END ==
LOC: M LAB REF 16:54
PROVIDERS: ATTEND Internal Medicine Nephrology
DX: N18.4 Chronic kidney disease, stage 4 (severe) (principal); E03.9 Hypothyroidism, unspecified

== ENCOUNTER → 2020-11-20 | Outpatient (REF) | payer OTHER ==
[2020-11-20 19:29] LABS: FREE T4 1.23 NG/DL (0.76-1.46); THYROID STIMULATING HORMONE 1.52 uIU/ML (0.358-3.740)
== END ==
LOC: M LAB REF 17:06
PROVIDERS: ATTEND Internal Medicine Nephrology
DX: E03.9 Hypothyroidism, unspecified (principal); N18.4 Chronic kidney disease, stage 4 (severe)

== ENCOUNTER → 2021-03-27 | Outpatient (CLI) | payer OTHER ==
[~2021-03-27] MED LIST changes: +CALC1CAP31 PO; -CEFD1CAP8 PO; +CEFD300C41 PO; +CHLO25TA PO; +GLIM4TAB5 PO; +LOSA100T45 PO; -LOSA100T50 PO; +NESI12.5 PO
== END ==
LOC: M LABSMTC 09:52
PROVIDERS: ATTEND Anesthesiology
DX: Z01.812 Encounter for preprocedural laboratory examination (principal); Z20.822 Contact with and (suspected) exposure to COVID-19

== ENCOUNTER 2021-04-01 09:48 | Day surgery (SDC) | payer OTHER ==
[~2021-04-01] VITALS: Ht 152.4 cm; Wt 64.0 kg
[~2021-04-01 09:48] MED LIST changes: +NS 1,000 ML IV ONE
[2021-04-01] MEDS ORDERED: fentaNYL 100 MCG/2 ML INJECTION As Ordered ONE (11:31)
[2021-04-01] MEDS ORDERED: LIDOCAINE 2% MDV 20ML VIAL As Ordered ONE (11:31)
[2021-04-01] MEDS ORDERED: propofoL 200 MG/20 ML VIAL As Ordered ONE (11:31)
[2021-04-01 12:54] VITALS: BP 155/74
== END 2021-04-01 12:45 | disposition home or self-care (01) ==
LOC: M OPP 09:48
PROVIDERS: ATTEND Internal Medicine Gastroenterology
DX: R19.5 Other fecal abnormalities (principal); K57.30 Diverticulosis of large intestine without perforation or abscess without bleeding; K64.0 First degree hemorrhoids; E11.9 Type 2 diabetes mellitus without complications; Z79.84 Long term (current) use of oral hypoglycemic drugs; Z79.899 Other long term (current) drug therapy

== ENCOUNTER → 2021-05-21 | Outpatient (REF) | payer OTHER ==
[~2021-05-21] MED LIST changes: -NS 1,000 ML IV ONE
[2021-05-21 18:04] LABS: FREE T4 1.44 NG/DL (0.76-1.46); THYROID STIMULATING HORMONE 2.12 uIU/ML (0.358-3.740)
== END ==
LOC: M LAB REF 17:01
PROVIDERS: ATTEND Internal Medicine Nephrology
DX: N18.4 Chronic kidney disease, stage 4 (severe) (principal); E03.9 Hypothyroidism, unspecified

== ENCOUNTER → 2021-11-19 | Outpatient (REF) | payer OTHER ==
[2021-11-19 18:25] LABS: FREE T4 1.47 NG/DL (0.76-1.46); THYROID STIMULATING HORMONE 1.37 uIU/ML (0.358-3.740)
== END ==
LOC: M LAB REF 16:49
PROVIDERS: ATTEND Internal Medicine Nephrology
DX: N18.4 Chronic kidney disease, stage 4 (severe) (principal); E03.9 Hypothyroidism, unspecified

== ENCOUNTER → 2022-07-01 | Outpatient (REF) | payer OTHER ==
[~2022-07-01] MED LIST changes: -LOSA100T45 PO; +LOSA100T46 PO
[2022-07-01 17:56] LABS: THYROID STIMULATING HORMONE 2.279 uIU/ML (0.55-4.78)
[2022-07-01 17:57] LABS: FREE T4 1.3 NG/DL (0.89-1.76)
== END ==
LOC: M LAB REF 16:43
PROVIDERS: ATTEND Internal Medicine Nephrology
DX: N18.4 Chronic kidney disease, stage 4 (severe) (principal); E03.9 Hypothyroidism, unspecified

== ENCOUNTER → 2022-10-27 | Outpatient (REF) | payer MEDICARE, OTHER ==
[2022-10-27 20:36] LABS: FREE T4 1.39 NG/DL (0.89-1.76); THYROID STIMULATING HORMONE 1.969 uIU/ML (0.55-4.78)
== END ==
LOC: M LAB REF 17:24
PROVIDERS: ATTEND Internal Medicine Nephrology
DX: N18.4 Chronic kidney disease, stage 4 (severe) (principal); E03.9 Hypothyroidism, unspecified